=== PATIENT | female | born 1950 | race Caucasian/White ===

== ENCOUNTER 2018-02-14 08:02 | Inpatient (IN) | payer OTHER, MEDICARE ==
[~2018-02-14 08:02] MED LIST: Acetaminophen 325 MG Tab PO SCH; Bisacodyl 5 MG Tab PO PRN; HYDROmorphone 0.5 MG/0.5 ML Syringe IVPUSH PRN; Ketorolac 30 MG/ML SDV ONE; Lactated Ringers 1,000 ML ONE; Lidocaine 1%/Sod Bicarbonate in NS 8.4% 1 ML Syringe IDERM PRN; Magnesium Hydroxide 400 MG/5 ML Susp 30 ML Cup PO PRN; Midazolam 1 MG/ML 2 ML SDV ONE; Naloxone 0.4 MG/ML SDV IVPUSH PRN; Ondansetron 4 MG/2 ML SDV IVPUSH PRN; Pregabalin 25 MG Cap PO SCH; Propofol 200 MG/20 ML SDV ONE; Scopolamine 1.5 MG Transdermal Patch TRDERM ONE; Sennosides 8.6 MG Tab PO PRN; Sodium Chloride 0.9% 10 ML Syringe FLUSH PRN; fentaNYL 100 MCG/2 ML SDV ONE; oxyCODONE ER 10 MG TAB.ER PO ONE
[2018-02-14] MEDS ORDERED: ceFAZolin 1 GM Vial ONE (08:28)
--- NOTE | 2018-02-14 08:30 | PCM.PREANE ---
Preanesthetic Assessment - Anesthesia/Transfusion/Family Hx Anesthesia History: Prior Anesthesia Without Reaction Type of Anesthesia Reaction: Excessive Nausea/Vomiting Family History of Anesthesia Reaction: No Transfusion History: No Prior Transfusion(s) - Review of Systems General: No Symptoms, Other (obesity, allergic rhinitis) Pulmonary: Other (asthma s/p prednisone x3 days finished last wednesday) Cardiovascular: Other (CXR negative, EKG sr with nonspecific intraventricular delay) Other: Reports: Thyroid Problems, Anxiety - Physical Assessment NPO Status Date: 02/13/18 NPO Status Time: 18:30 Pulse: 73 O2 Sat by Pulse Oximetry: 93 Respiratory Rate: 16 Blood Pressure: 136/78 Weight: 109 kg ASA Class: 2 Mental Status: Alert & Oriented x3 Airway Class: Mallampati = 2 Thyro-Mental Finger Breadths: 2 Mouth Opening Finger Breadths: 3 ROM/Head Extension: Full Lungs: Clear to Auscultation, Normal Respiratory Effort Cardiovascular: Regular Rate, Regular Rhythm - Allergies Allergies/Adverse Reactions: Allergies Allergy/AdvReac Type Severity Reaction Status Date / Time metronidazole [From Flagyl] AdvReac Nausea and Verified 02/14/18 07:07 Vomiting morphine AdvReac Nausea and Verified 02/14/18 07:07 Vomiting - Blood Blood Available: No Product(s) Available: None - Anesthesia Plan Pre-Op Medication Ordered: None - Acknowledgements Anesthesia Type Planned: Spinal Pt an Appropriate Candidate for the Planned Anesthesia: Yes Alternatives and Risks of Anesthesia Discussed w Pt/Guardian: Yes Pt/Guardian Understands and Agrees with Anesthesia Plan: Yes PreAnesthesia Questionnaire HEENT History: Reports: Allergic Rhinitis, Hard of Hearing, Sinusitis, Other ( See Below) Other HEENT History: nasal polyp, hearing loss, hypertorphy of nasal turbinates , tinnitis, wears glasses, has hearing aids Cardiovascular History: Reports: None Respiratory History: Reports: Asthma, SOB, Other (See Below) Other Respiratory History: wheezing Gastrointestinal History: Reports: Diverticulosis Genitourinary History: Reports: Other (See Below) Other Genitourinary History: acute cystitis 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 (See Below) Other OB/BYN History: herpes simplex, vulvovaginitis Musculoskeletal History: Reports: Other (See Below) Other Musculoskeletal History: left knee pain Neurological History: Reports: None Psychiatric History: Reports: Anxiety, Other (See Below) Other Psychiatric History: fatigue Endocrine/Metabolic History: Reports: Hypothyroidism, Obesity/BMI 30+ Hematologic History: Reports: None Immunologic History: Reports: None Oncologic (Cancer) History: Reports: None Dermatologic History: Reports: None - Past Surgical History HEENT Surgical History: Reports: Adenoidectomy, Naso-Sinus Surgery, Tonsillectomy Cardiovascular Surgical History: Reports: None Respiratory Surgical History: Reports: None GI Surgical History: Reports: Appendectomy, Cholecystectomy, Colonoscopy Female Surgical History: Reports: Hysterectomy Male Surgical History: Reports: None Endocrine Surgical History: Reports: None Neurological Surgical History: Reports: None Musculoskeletal Surgical History: Reports: Other (See Below) Other Musculoskeletal Surgeries/Procedures:: bilateral bunionectomy Oncologic Surgical History: Reports: None Dermatological Surgical History: Reports: None - SUBSTANCE USE Smoking Status *Q: Former Smoker Recreational Drug Use History: No - HOME MEDS Home Medications: Home Meds ALPRAZolam [Xanax] 0.5 - 1 tab PO Q8H PRN 02/13/18 [History] Aspirin 81 mg PO DAILY 02/13/18 [History] Budesonide/Formoterol Fumarate [Symbicort 160-4.5 Mcg Inhaler] 1 puff INH BID [History] Ca Carbonate/Vitamin D3/Vit K [Calcium + D Soft Chewable Tab] 1 tab PO TID 02/13 [History] Cetirizine [ZyrTEC] 10 mg PO DAILY 02/13/18 [History] Lansoprazole [Prevacid] 15 mg PO DAILY 02/13/18 [History] Levothyroxine 150 mcg PO DAILY 02/13/18 [History] Montelukast [Singulair] 10 mg PO DAILY 02/13/18 [History] Triamcinolone Acetonide [Nasacort] 1 spray INH DAILY 02/13/18 [History] Vitamin B Complex 1 cap PO DAILY 02/13/18 [History] Vitamin E 400 unit PO DAILY 02/13/18 [History] valACYclovir HCl [Valacyclovir] 1,000 mg PO BID PRN 02/13/18 [History] - CURRENT (IN HOUSE) MEDS Current Meds: Current Medications Acetaminophen (Tylenol) 975 mg PO ASDIRECTED SPENCER Stop: 02/14/18 23:00 Aspirin (Ecotrin) 325 mg PO BID SPENCER Bisacodyl (Dulcolax) 5 mg PO DAILY PRN PRN Reason: Constipation Morphine Sulfate 8 mg/Epinephrine HCl 0.3 mg/Cefuroxime Sodium 750 mg/Ketorolac Tromethamine 30 mg/Sodium Chloride 27.9 ml 0 mg .XX ONETIME ONE Stop: 02/14/18 10:01 Cyclobenzaprine HCl (Flexeril) 10 mg PO TID PRN PRN Reason: Spasms Docusate Sodium (Colace) 100 mg PO BID SPENCER Famotidine (Pepcid) 20 mg PO Q12H SPENCER Hydromorphone HCl (Dilaudid) 0.2 mg IVPUSH Q2H PRN PRN Reason: breakthrough pain Lactated Ringer's (Ringers, Lactated) 1,000 mls @ 125 mls/hr IV ASDIRECTED [facility] Stop: 02/14/18 23:00 Cefazolin Sodium/Dextrose 2 gm (/ Premix) 50 mls @ 100 mls/hr IV Q8H [facility] Stop: 02/14/18 23:14 Ketorolac Tromethamine (Toradol) 15 mg IVPUSH Q6H PRN PRN Reason: Pain Lidocaine/Sodium Bicarbonate (Buffered Lidocaine 1% In Ns 8.4%) 0.25 ml IDERM ONETIME PRN PRN Reason: Prior to IV Start Stop: 02/14/18 18:00 Magnesium Hydroxide (Milk Of Magnesia) 30 ml PO BID PRN PRN Reason: Constipation Naloxone HCl (Narcan) 0.1 mg IVPUSH Q5M PRN PRN Reason: Oversedation Ondansetron HCl (Zofran) 4 mg IVPUSH Q6H PRN PRN Reason: Nausea/Vomiting Oxycodone/Acetaminophen (Percocet 325-5 Mg) 1 - 2 tab PO Q4H PRN PRN Reason: Pain Pregabalin (Lyrica) 50 mg PO ASDIRECTED [facility] Stop: 02/14/18 18:00 Senna (Senna) 8.6 mg PO BID PRN PRN Reason: Constipation Sodium Chloride (Saline Flush) 10 ml FLUSH ASDIRECTED PRN PRN Reason: Keep Vein Open Stop: 02/14/18 18:00 Discontinued Medications Cefazolin Sodium (Ancef) Confirm Administered Dose 2 gm .ROUTE .STK-MED ONE Stop: 02/14/18 07:14 Fentanyl (Sublimaze) Confirm Administered Dose 100 mcg .ROUTE .STK-MED ONE Stop: 02/14/18 07:14 Lactated Ringer's (Ringers, Lactated) Confirm Administered Dose 1,000 mls @ as directed .ROUTE .STK-MED ONE Stop: 02/14/18 07:14 Ketorolac Tromethamine (Toradol) Confirm Administered Dose 30 mg .ROUTE .STK- MED ONE Stop: 02/14/18 07:14 Midazolam HCl (Versed 1 Mg/Ml) Confirm Administered Dose 2 mg .ROUTE .STK-MED ONE Stop: 02/14/18 07:14 Oxycodone HCl (Oxycontin) 10 mg PO ONETIME ONE Stop: 02/14/18 06:01 Propofol (Diprivan 20 Ml) Confirm Administered Dose 400 mg .ROUTE .STK-MED ONE Stop: 02/14/18 07:14 Propofol (Diprivan 20 Ml) Confirm Administered Dose 200 mg .ROUTE .STK-MED ONE Stop: 02/14/18 07:19 Scopolamine (Transderm-Scop) 1.5 mg TRDERM ONETIME ONE Stop: 02/14/18 07:01
[2018-02-14] MEDS: Lactated Ringers 1,000 ML IV SCH ×2 (08:35→09:34)
[2018-02-14] MEDS ORDERED: oxyCODONE ER 10 MG TAB.ER PO ONE (08:45)
[2018-02-14] MEDS: ceFAZolin 1 GM Vial ONE ×2 (09:00→11:26)
[2018-02-14] MEDS: Morphine 8 MG, EPINEPHrine 0.3 MG, Cefuroxime 750 MG, Ketorolac 30 MG, Sodium Chloride ... ONE ×15 (09:00→14:05)
[2018-02-14] MEDS: Iodine/Sodium Iodide 2% Tincture 30 ML Bottle ONE ×2 (09:01→11:24)
[2018-02-14] MEDS: Bupivacaine 0.25% 30 ML SDV ONE ×2 (09:01→11:31)
[2018-02-14] MEDS: Vancomycin 1 GM SDV ONE ×2 (09:02→11:34)
[2018-02-14] MEDS ORDERED: Bupivacaine 0.75% 30 ML SDV ONE (10:36)
[2018-02-14] MEDS ORDERED: Phenylephrine 1% 10 MG/ML SDV ONE (10:37)
[2018-02-14] MEDS ORDERED: Ondansetron 4 MG/2 ML SDV ONE (10:55)
[2018-02-14] MEDS ORDERED: Cyclobenzaprine 10 MG Tab PO PRN (11:00)
[2018-02-14] MEDS ORDERED: fentaNYL 100 MCG/2 ML SDV IVPUSH PRN (11:11)
[2018-02-14] MEDS ORDERED: Propofol 200 MG/20 ML SDV ONE (11:38)
[2018-02-14] MEDS ORDERED: HYDROmorphone 0.5 MG/0.5 ML Syringe IVPUSH ONE (11:45)
[2018-02-14] MEDS ORDERED: EPINEPHrine 1 MG/ML SDV ONE (11:50)
[2018-02-14] MEDS ORDERED: Ropivacaine 0.5% 5 MG/ML 30 ML SDV ONE (11:51)
--- NOTE | 2018-02-14 12:16 | PCM.POSTAN ---
POST ANESTHESIA ASSESSMENT - MENTAL STATUS Mental Status: Alert, Oriented - VITAL SIGNS Pulse Rate: 65 SaO2: 96 Resp Rate: 14 Blood Pressure: 107/62 Temperature: 36.3 C - RESPIRATORY Respiratory Status: Respiratory Rate WNL, Airway Patent, O2 Saturation Stable, Supplemental Oxygen - CARDIOVASCULAR CV Status: Pulse Rate WNL, Blood Pressure Stable - GASTROINTESTINAL GI Status: No Symptoms - PAIN Pain Score: 0 - POST OP HYDRATION Hydration Status: Adequate & Stable
--- NOTE | 2018-02-14 13:08 | PCM.SN ---
- Free Text/Narrative Note: Left selective femoral nerve block at the adductor canal for post-procedure pain control under US guidance requested by Dr. Majano. Time Out: 1244 Start: 1244 End: 1251 Chart reviewed. Consent signed. Questions answered. Appropriate monitors applied. Time out performed. Left mid-shaft femur identified with ultrasound, scanning medially of femur, the femoral artery in the adductor canal visualized , and the femoral nerve located laterally to the artery. The skin was prepped lateral to the ultrasound probe with chlorahexadine. The 21ga 4 insulated block needle was inserted under direct ultrasound guidance into the adductor canal. 30mL of 0.5% ropivacaine with 1:200,000 epinephrine was injected circumferentially around the nerve with intermittent negative aspiration noted. Patient tolerated the procedure well. Aseptic technique noted along with sterile gloves, mask, and sterile probe cover. See pictures on progress note and vital signs on nurses notes. Block completed in PACU. Juan Brewer CRNA
[2018-02-14] MEDS: Famotidine 20 MG Tab PO SCH ×2 (14:05→18:15)
--- NOTE | 2018-02-14 14:20 | CR ---
Left knee: AP and lateral views of the left knee were obtained. Comparison: No previous study to correlate with. Knee prosthesis is seen. Components are aligned. Soft tissue air is noted from the surgical procedure. Underlying bony structures are intact. Impression: 1. Satisfactory postop radiographic appearance of recently placed left knee prosthesis. Diagnostic code #2
--- NOTE | 2018-02-14 15:48 | PCM.CONS ---
H&P History of Present Illness - General Date of Service: 02/14/18 Admit Problem/Dx: Admission Diagnosis/Problem Admission Diagnosis/Problem Osteoarthritis of knee Source of Information: Patient, Old Records, Provider, RN Notes Reviewed History Limitations: Reports: No Limitations - History of Present Illness Initial Comments - Free Text/Narative: Libertad is a 67 yo female patient of Dr. Majano who is post-operative day 0 of left TKA. Hospital medicine was consulted for post-operative medical care. At this time she is stable. Pain is controlled. She denies any chest pain, shortness of breath, palpitations. She did have some nausea and vomiting x1 after her PT, but it has since subsided. She carries a history of: Obesity, asthma, hypothyroid, anxiety, hearing loss, diverticulosis. She is a former smoker- 1ppd, quit in 1986. She is a full code. Left Knee Pain Score (Numeric/FACES): 4 Lower Back Pain Score (Numeric/FACES): 8 - Related Data Allergies/Adverse Reactions: Allergies Allergy/AdvReac Type Severity Reaction Status Date / Time metronidazole [From Flagyl] AdvReac Nausea and Verified 02/14/18 07:07 Vomiting morphine AdvReac Nausea and Verified 02/14/18 07:07 Vomiting Home Medications: Home Meds ALPRAZolam [Xanax] 0.5 - 1 tab PO Q8H PRN 02/13/18 [History] Aspirin 81 mg PO DAILY 02/13/18 [History] Budesonide/Formoterol Fumarate [Symbicort 160-4.5 Mcg Inhaler] 1 puff INH BID [History] Ca Carbonate/Vitamin D3/Vit K [Calcium + D Soft Chewable Tab] 1 tab PO TID 02/13 [History] Cetirizine [ZyrTEC] 10 mg PO DAILY 02/13/18 [History] Lansoprazole [Prevacid] 15 mg PO DAILY PRN 02/13/18 [History] Levothyroxine 150 mcg PO DAILY 02/13/18 [History] Montelukast [Singulair] 10 mg PO DAILY PRN 02/13/18 [History] Triamcinolone Acetonide [Nasacort] 1 spray INH DAILY PRN 02/13/18 [History] Vitamin B Complex 1 cap PO DAILY 02/13/18 [History] Vitamin E 400 unit PO DAILY 02/13/18 [History] valACYclovir HCl [Valacyclovir] 1,000 mg PO BID PRN 02/13/18 [History] Past Medical History HEENT History: Reports: Allergic Rhinitis, Hard of Hearing, Sinusitis, Other ( See Below) Other HEENT History: nasal polyp, hearing loss, hypertorphy of nasal turbinates , tinnitis, wears glasses, has hearing aids Cardiovascular History: Reports: None Respiratory History: Reports: Asthma, SOB, Other (See Below) Other Respiratory History: wheezing Gastrointestinal History: Reports: Diverticulosis Genitourinary History: Reports: Other (See Below) Other Genitourinary History: acute cystitis 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 (See Below) Other OB/BYN History: herpes simplex, vulvovaginitis Musculoskeletal History: Reports: Other (See Below) Other Musculoskeletal History: left knee pain Neurological History: Reports: None Psychiatric History: Reports: Anxiety, Other (See Below) Other Psychiatric History: fatigue Endocrine/Metabolic History: Reports: Hypothyroidism, Obesity/BMI 30+ Hematologic History: Reports: None Immunologic History: Reports: None Oncologic (Cancer) History: Reports: None Dermatologic History: Reports: None - Past Surgical History HEENT Surgical History: Reports: Adenoidectomy, Naso-Sinus Surgery, Tonsillectomy Cardiovascular Surgical History: Reports: None Respiratory Surgical History: Reports: None GI Surgical History: Reports: Appendectomy, Cholecystectomy, Colonoscopy Female Surgical History: Reports: Hysterectomy Male Surgical History: Reports: None Endocrine Surgical History: Reports: None Neurological Surgical History: Reports: None Musculoskeletal Surgical History: Reports: Other (See Below) Other Musculoskeletal Surgeries/Procedures:: bilateral bunionectomy Oncologic Surgical History: Reports: None Dermatological Surgical History: Reports: None Social & Family History - Tobacco Use Smoking Status *Q: Former Smoker Used Tobacco, but Quit: Yes Month/Year Tobacco Last Used: 1986 - Caffeine Use Caffeine Use: Reports: None - Recreational Drug Use Recreational Drug Use: No Drug Use in Last 12 Months: No H&P Review of Systems - Review of Systems: Review Of Systems: See Below General: Reports: No Symptoms. Denies: Fever, Chills HEENT: Reports: No Symptoms. Denies: Headaches Pulmonary: Reports: No Symptoms. Denies: Shortness of Breath, Cough Cardiovascular: Reports: No Symptoms. Denies: Chest Pain, Palpitations Gastrointestinal: Reports: No Symptoms. Denies: Abdominal Pain, Diarrhea, Nausea, Vomiting Genitourinary: Reports: No Symptoms. Denies: Dysuria, Frequency, Burning Musculoskeletal: Reports: Joint Pain (3/10, s/p L TKA) Skin: Reports: No Symptoms Psychiatric: Reports: No Symptoms Neurological: Reports: No Symptoms Hematologic/Lymphatic: Reports: No Symptoms Immunologic: Reports: No Symptoms Exam - Exam Exam: See Below - Vital Signs Vital Signs: Last Vital Signs Temp 96.3 F 02/14/18 13:28 Pulse 52 L 02/14/18 15:02 Resp 16 02/14/18 13:28 BP 112/62 02/14/18 15:02 Pulse Ox 96 02/14/18 15:02 Weight: 239 lb - Exam Quality Assessment: Supplemental Oxygen (1L nasal cannula), Urinary Catheter, DVT Prophylaxis General: Alert, Oriented, 4 HEENT: Conjunctiva Clear, EACs Clear, EOMI, Hearing Intact, Mucosa Moist & [place] , Nares Patent, Normal Nasal Septum, Posterior Pharynx Clear Neck: Supple, Trachea Midline, 2 Lungs: Clear to Auscultation, Normal Respiratory Effort Cardiovascular: Regular Rate, Regular Rhythm GI/Abdominal Exam: Normal Bowel Sounds, Soft, Non-Tender, No Organomegaly, No Distention, No Abnormal Bruit, No Mass, Pelvis Stable (Female) Exam: Deferred Rectal (Female) Exam: Deferred Back Exam: Normal Inspection, Full Range of Motion, NT Extremities: Non-Tender (3/10 pain, s/p L TKA), No Pedal Edema, Normal Capillary Refill, Limited Range of Motion Peripheral Pulses: 1+: Posterior Tibial (L), Posterior Tibial (R), Dorsalis Pedis (L), Dorsalis Pedis (R) Skin: Warm, Dry, Intact, Other (Dressing is dry and intact) Neurological: Cranial Nerves Intact (Grossly) Neuro Extensive - Mental Status: Alert, Oriented x3, Normal Mood/Affect, Normal Cognition Psychiatric: Alert, Normal Affect, Normal Mood Consult PN Assessment/Plan POD#: 0 Procedures: Procedures DXA BONE DENSITY AXIAL (11/15/15) MR-STAPH DNA AMP PROBE (02/03/18) (1) Status post total left knee replacement SNOMED Code(s): 1181144042396 Code(s): Z96.652 - PRESENCE OF LEFT ARTIFICIAL KNEE JOINT Priority: High Current Visit: Yes (2) Obesity SNOMED Code(s): 159842362, 514873568 Code(s): E66.9 - OBESITY, UNSPECIFIED Priority: Low Current Visit: Yes Qualifiers: Obesity classification: unspecified obesity classification Serious obesity comorbidity presence: unspecified whether serious comorbidity present (3) Asthma SNOMED Code(s): 946941978 Code(s): J45.909 - UNSPECIFIED ASTHMA, UNCOMPLICATED Priority: Medium Current Visit: No Qualifiers: Asthma severity: unspecified severity Asthma persistence: unspecified Asthma complication type: unspecified Qualified Code(s): J45.909 - Unspecified asthma, uncomplicated (4) Hypothyroid SNOMED Code(s): 00775863 Code(s): E03.9 - HYPOTHYROIDISM, UNSPECIFIED Priority: Low Current Visit : No Qualifiers: Hypothyroidism type: unspecified Qualified Code(s): E03.9 - Hypothyroidism , unspecified (5) Anxiety SNOMED Code(s): 70697290 Code(s): F41.9 - ANXIETY DISORDER, UNSPECIFIED Priority: Low Current Visit: No (6) Hearing loss SNOMED Code(s): 04996225 Code(s): H91.90 - UNSPECIFIED HEARING LOSS, UNSPECIFIED EAR Priority: Low Current Visit: Yes Qualifiers: Hearing loss type: unspecified Laterality: unspecified laterality Qualified Code(s): H91.90 - Unspecified hearing loss, unspecified ear (7) Diverticulosis SNOMED Code(s): 74489667 Code(s): K57.90 - DVRTCLOS OF INTEST, PART UNSP, W/O PERF OR ABSCESS W/O BLEED Priority: Low Current Visit: No Qualifiers: Diverticulosis site: unspecified location Problem List Initiated/Reviewed/Updated: Yes Plan: I/P: Acute: S/P left total knee arthroplasty - post-operative day 0 -DVT prophylaxis and pain management per primary care team -PT/OT -IS/RT -Monitor oxygen saturation -Titrate oxygen as needed -Vital signs stable -Monitor labs Chronic: Obesity Asthma Hypothyroid Anxiety Hearing loss Diverticulosis Plan: CM for discharge planning GI prophylaxis: Pepcid DVT/PE prophylaxis: TRACY hose, SCD, ASA Home medications as indicated Other orders as listed above Routine AM labs She is a full code. Her PCP is Dereck Majano. Thank you for allowing us to participate in the care of this patient!!
[2018-02-14] MEDS ORDERED: ALPRAZolam 0.5 MG Tab PO PRN (16:14)
[2018-02-14] MEDS ORDERED: Pantoprazole 40 MG Tab.CR PO PRN (16:14)
[2018-02-14] MEDS ORDERED: Montelukast 10 MG Tab PO PRN (16:14)
[2018-02-14] MEDS ORDERED: valACYclovir 1,000 MG Tab PO PRN (16:14)
[2018-02-14] MEDS: ceFAZolin 2 GM in Premix Bag 1 BAG IV SCH (17:01)
[2018-02-14] MEDS: Ketorolac 15 MG/ML SDV IVPUSH PRN (17:47)
[2018-02-14] MEDS: Docusate Sodium 100 MG Cap PO SCH (21:02)
[2018-02-14] MEDS: Acetaminophen/oxyCODONE 325-5 MG Tab PO PRN (21:02)
[2018-02-14] MEDS: Formoterol/Mometasone 200-5 MCG 8.8 GM Inhaler IH SCH (21:45)
[2018-02-15] MEDS: ceFAZolin 2 GM in Premix Bag 1 BAG IV SCH ×2 (01:06→09:32)
[2018-02-15] MEDS: Ketorolac 15 MG/ML SDV IVPUSH PRN (01:07)
[2018-02-15] MEDS: Acetaminophen/oxyCODONE 325-5 MG Tab PO PRN ×2 (04:13→09:41)
[2018-02-15] MEDS ORDERED: Levothyroxine 150 MCG Tab PO SCH (06:00)
--- NOTE | 2018-02-15 06:30 | PCM.CONSN ---
- General Info Date of Service: 02/15/18 Admission Dx/Problem (Free Text): Admission Diagnosis/Problem Admission Diagnosis/Problem Osteoarthritis of knee Subjective Update: In to see Libertad. She is lying in bed. She reports some mild nausea while up to use the restroom but this has resolved. No complaints. Nursing has no concerns. Oxygen has been weaned. She did very well with PT/OT Functional Status: Reports: Pain Controlled, Tolerating Diet, Ambulating, Urinating, Incentive Spirometry. Denies: New Symptoms - Review of Systems General: Reports: No Symptoms HEENT: Reports: No Symptoms Pulmonary: Reports: No Symptoms Cardiovascular: Reports: No Symptoms Gastrointestinal: Reports: Nausea (earlier in day but has resolved ). Denies: Abdominal Pain, Constipation, Diarrhea, Vomiting Genitourinary: Reports: No Symptoms Musculoskeletal: Reports: Joint Pain Skin: Reports: No Symptoms Neurological: Reports: No Symptoms Psychiatric: Reports: No Symptoms - Patient Data Vitals - Most Recent: Last Vital Signs Temp 97.9 F 02/14/18 16:00 Pulse 64 02/14/18 19:58 Resp 16 02/14/18 13:28 BP 138/79 02/14/18 19:58 Pulse Ox 95 02/14/18 19:58 Weight - Most Recent: 239 lb I&O - Last 24 Hours: Intake & Output 02/14/18 02/14/18 02/15/18 14:59 22:59 06:59 Intake Total 400 120 Output Total 370 490 550 Balance 30 -370 -550 Med Orders - Current: Current Medications Alprazolam (Xanax) 0.5 - 1 mg PO Q8H PRN PRN Reason: Anxiety Aspirin (Ecotrin) 325 mg PO BID [facility] Bisacodyl (Dulcolax) 5 mg PO DAILY PRN PRN Reason: Constipation Cyclobenzaprine HCl (Flexeril) 10 mg PO TID PRN PRN Reason: Spasms Docusate Sodium (Colace) 100 mg PO BID [facility] Last Admin: 02/14/18 21:02 Dose: 100 mg Famotidine (Pepcid) 20 mg PO Q12H [facility] Last Admin: 02/14/18 18:15 Dose: Not Given Flunisolide (Nasalide Nasal [place]) 0 ml NASBOTH DAILY PRN PRN Reason: Allergies Hydromorphone HCl (Dilaudid) 0.2 mg IVPUSH Q2H PRN PRN Reason: breakthrough pain Cefazolin Sodium/Dextrose 2 gm (/ Premix) 50 mls @ 100 mls/hr IV Q8H [facility] Stop: 02/15/18 09:29 Last Admin: 02/15/18 01:06 Dose: 100 mls/hr Ketorolac Tromethamine (Toradol) 15 mg IVPUSH Q6H PRN PRN Reason: Pain Last Admin: 02/15/18 01:07 Dose: 15 mg Levothyroxine Sodium (Levothyroxine) 150 mcg PO ACBRK [facility] Loratadine (Claritin) 10 mg PO DAILY [facility] Magnesium Hydroxide (Milk Of Magnesia) 30 ml PO BID PRN PRN Reason: Constipation Mometasone Furoate/Formoterol Fumar (Dulera 200-5 Mcg) 1 puff IH BID [facility] Last Admin: 02/14/18 21:45 Dose: Not Given Montelukast Sodium (Singulair) 10 mg PO DAILY PRN PRN Reason: Allergies Naloxone HCl (Narcan) 0.1 mg IVPUSH Q5M PRN PRN Reason: Oversedation Non-Formulary Medication (Ca Carbonate/Vitamin D3/Vit K [Calcium + D Soft Chewable Tab]) 1 tab PO TID [facility] Ondansetron HCl (Zofran) 4 mg IVPUSH Q6H PRN PRN Reason: Nausea/Vomiting Oxycodone/Acetaminophen (Percocet 325-5 Mg) 1 - 2 tab PO Q4H PRN PRN Reason: Pain Last Admin: 02/15/18 04:13 Dose: 2 tab Pantoprazole Sodium (Protonix) 40 mg PO DAILY@0700 PRN PRN Reason: Heartburn Senna (Senna) 8.6 mg PO BID PRN PRN Reason: Constipation Valacyclovir HCl (Valtrex) 1,000 mg PO BID PRN PRN Reason: cold sores Vitamin B Complex/Vitamin C (Super B With Vitamin C) 1 cap PO DAILY [facility] Discontinued Medications Acetaminophen (Tylenol) 975 mg PO ASDIRECTED [facility] Stop: 02/14/18 23:00 Last Admin: 02/14/18 08:46 Dose: 975 mg Bupivacaine HCl (Marcaine 0.25%) Confirm Administered Dose 30 ml .ROUTE .STK- MED ONE Stop: 02/14/18 08:29 Last Admin: 02/14/18 11:31 Dose: 30 ml Bupivacaine HCl (Sensorcaine-Mpf 0.75%) Confirm Administered Dose 30 ml .ROUTE .STK-MED ONE Stop: 02/14/18 10:37 Cefazolin Sodium (Ancef) Confirm Administered Dose 2 gm .ROUTE .STK-MED ONE Stop: 02/14/18 07:14 Last Admin: 02/14/18 11:26 Dose: 2 gm Cefazolin Sodium (Ancef) Confirm Administered Dose 2 gm .ROUTE .STK-MED ONE Stop: 02/14/18 08:29 Morphine Sulfate 8 mg/Epinephrine HCl 0.3 mg/Cefuroxime Sodium 750 mg/Ketorolac Tromethamine 30 mg/Sodium Chloride 27.9 ml 0 mg .XX ONETIME ONE Stop: 02/14/18 10:01 Last Admin: 02/14/18 14:05 Dose: Not Given Epinephrine HCl (Adrenalin) Confirm Administered Dose 1 mg .ROUTE .STK-MED ONE Stop: 02/14/18 11:51 Fentanyl (Sublimaze) Confirm Administered Dose 100 mcg .ROUTE .STK-MED ONE Stop: 02/14/18 07:14 Fentanyl (Sublimaze) 50 mcg IVPUSH Q5M PRN PRN Reason: pain Stop: 02/14/18 14:00 Hydromorphone HCl (Dilaudid) 0.5 mg IVPUSH ONETIME ONE Stop: 02/14/18 11:46 Last Admin: 02/14/18 14:05 Dose: Not Given Lactated Ringer's (Ringers, Lactated) 1,000 mls @ 125 mls/hr IV ASDIRECTED [facility] Stop: 02/14/18 23:00 Last Admin: 02/14/18 09:34 Dose: 125 mls/hr Lactated Ringer's (Ringers, Lactated) Confirm Administered Dose 1,000 mls @ as directed .ROUTE .STK-MED ONE Stop: 02/14/18 07:14 Iodine (Iodine 2% Mild Tincture) Confirm Administered Dose 30 ml .ROUTE .STK- MED ONE Stop: 02/14/18 08:29 Last Admin: 02/14/18 11:24 Dose: 18 ml Ketorolac Tromethamine (Toradol) Confirm Administered Dose 30 mg .ROUTE .STK- MED ONE Stop: 02/14/18 07:14 Lidocaine/Sodium Bicarbonate (Buffered Lidocaine 1% In Ns 8.4%) 0.25 ml IDERM ONETIME PRN PRN Reason: Prior to IV Start Stop: 02/14/18 18:00 Last Admin: 02/14/18 08:35 Dose: 0.25 ml Midazolam HCl (Versed 1 Mg/Ml) Confirm Administered Dose 2 mg .ROUTE .STK-MED ONE Stop: 02/14/18 07:14 Ondansetron HCl (Zofran) Confirm Administered Dose 4 mg .ROUTE .STK-MED ONE Stop: 02/14/18 10:56 Oxycodone HCl (Oxycontin) 10 mg PO ONETIME ONE Stop: 02/14/18 06:01 Last Admin: 02/14/18 08:47 Dose: 10 mg Oxycodone HCl (Oxycontin) 10 mg PO ONETIME ONE Stop: 02/14/18 08:46 Last Admin: 02/14/18 08:49 Dose: Not Given Phenylephrine HCl (Manoj-Synephrine) Confirm Administered Dose 10 mg .ROUTE .STK- MED ONE Stop: 02/14/18 10:38 Pregabalin (Lyrica) 50 mg PO ASDIRECTED [facility] Stop: 02/14/18 18:00 Last Admin: 02/14/18 08:46 Dose: 50 mg Propofol (Diprivan 20 Ml) Confirm Administered Dose 400 mg .ROUTE .STK-MED ONE Stop: 02/14/18 07:14 Propofol (Diprivan 20 Ml) Confirm Administered Dose 200 mg .ROUTE .STK-MED ONE Stop: 02/14/18 07:19 Propofol (Diprivan 20 Ml) Confirm Administered Dose 200 mg .ROUTE .STK-MED ONE Stop: 02/14/18 11:39 Ropivacaine (Naropin 0.5%) Confirm Administered Dose 30 ml .ROUTE .STK-MED ONE Stop: 02/14/18 11:52 Scopolamine (Transderm-Scop) 1.5 mg TRDERM ONETIME ONE Stop: 02/14/18 07:01 Last Admin: 02/14/18 08:15 Dose: 1.5 mg Sodium Chloride (Saline Flush) 10 ml FLUSH ASDIRECTED PRN PRN Reason: Keep Vein Open Stop: 02/14/18 18:00 Tranexamic Acid (Cyklokapron) Confirm Administered Dose 1,000 mg .ROUTE .STK- MED ONE Stop: 02/14/18 08:29 Last Admin: 02/14/18 11:38 Dose: 1,000 mg Vancomycin HCl (Vancomycin) Confirm Administered Dose 1 gm .ROUTE .STK-MED ONE Stop: 02/14/18 08:29 Last Admin: 02/14/18 11:34 Dose: 1 gm - Exam Quality Assessment: DVT Prophylaxis General: Alert, Oriented, Cooperative, No Acute Distress HEENT: Pupils Equal, Pupils Reactive, EOMI, Mucous Membr. Moist/[place] Neck: Supple, Trachea Midline, No JVD Lungs: Clear to Auscultation, Normal Respiratory Effort Cardiovascular: Regular Rate, Regular Rhythm GI/Abdominal Exam: Normal Bowel Sounds, Soft, Non-Tender, No Organomegaly, No Distention, No Abnormal Bruit, No Mass, Pelvis Stable (Female) Exam: Deferred Back Exam: Normal Inspection, Full Range of Motion Extremities: No Pedal Edema, Normal Capillary Refill, Leg Pain, Limited Range of Motion, Other (bandage in place on ) Peripheral Pulses: 2+: Radial (L), Radial (R), Posterior Tibial (L), Posterior Tibial (R), Dorsalis Pedis (L), Dorsalis Pedis (R) Skin: Warm, Dry, Intact Wound/Incisions: Dressing Dry and Intact, No Drainage Neurological: No New Focal Deficit Psy/Mental Status: Alert, Normal Affect, Normal Mood Consult PN Assessment/Plan POD#: 1 Procedures: Procedures DXA BONE DENSITY AXIAL (11/15/15) MR-STAPH DNA AMP PROBE (02/03/18) (1) Status post total left knee replacement SNOMED Code(s): 4654145152124 Code(s): Z96.652 - PRESENCE OF LEFT ARTIFICIAL KNEE JOINT Priority: High Current Visit: Yes (2) Osteoarthritis SNOMED Code(s): 440399746 Code(s): M19.90 - UNSPECIFIED OSTEOARTHRITIS, UNSPECIFIED SITE Priority: High Current Visit: Yes Qualifiers: Osteoarthritis location: knee Osteoarthritis type: primary Laterality: left Qualified Code(s): M17.12 - Unilateral primary osteoarthritis, left knee (3) Hearing loss SNOMED Code(s): 41995571 Code(s): H91.90 - UNSPECIFIED HEARING LOSS, UNSPECIFIED EAR Priority: Low Current Visit: Yes Qualifiers: Hearing loss type: unspecified Laterality: unspecified laterality Qualified Code(s): H91.90 - Unspecified hearing loss, unspecified ear (4) Obesity SNOMED Code(s): 657459216, 954887337 Code(s): E66.9 - OBESITY, UNSPECIFIED Priority: Low Current Visit: Yes Qualifiers: Obesity classification: unspecified obesity classification Serious obesity comorbidity presence: unspecified whether serious comorbidity present (5) Anxiety SNOMED Code(s): 90727785 Code(s): F41.9 - ANXIETY DISORDER, UNSPECIFIED Priority: Low Current Visit: No (6) Asthma SNOMED Code(s): 910052146 Code(s): J45.909 - UNSPECIFIED ASTHMA, UNCOMPLICATED Priority: Medium Current Visit: No Qualifiers: Asthma severity: unspecified severity Asthma persistence: unspecified Asthma complication type: unspecified Qualified Code(s): J45.909 - Unspecified asthma, uncomplicated (7) Diverticulosis SNOMED Code(s): 85912328 Code(s): K57.90 - DVRTCLOS OF INTEST, PART UNSP, W/O PERF OR ABSCESS W/O BLEED Priority: Low Current Visit: No Qualifiers: Diverticulosis site: unspecified location (8) Hypothyroid SNOMED Code(s): 67487724 Code(s): E03.9 - HYPOTHYROIDISM, UNSPECIFIED Priority: Low Current Visit : No Qualifiers: Hypothyroidism type: unspecified Qualified Code(s): E03.9 - Hypothyroidism , unspecified Problem List Initiated/Reviewed/Updated: Yes Plan: I/P: Acute: S/P left total knee arthroplasty - post-operative day 1 -DVT prophylaxis and pain management per primary care team -PT/OT -IS/RT -Monitor oxygen saturation -Titrate oxygen as needed -Vital signs stable -Monitor labs - Hgb 13.2 Osteoarthritis of left knee -Management per primary care team Chronic: Obesity Asthma Hypothyroid Anxiety Hearing loss Diverticulosis Plan: CM for discharge planning GI prophylaxis: Pepcid DVT/PE prophylaxis: TRACY hose, SCD, ASA Home medications as indicated Other orders as listed above Routine AM labs She is a full code. Her PCP is Norma Kessler at [facility]. Thank you for allowing us to participate in the care of this patient!! Libertad has done very well. She has urinated. She is off oxygen. PT/OT have seen her and she has done well with them. From a hospitalist standpoint she is clear for discharge pending primary care team agreement.
[2018-02-15] MEDS: Famotidine 20 MG Tab PO SCH (06:48)
--- NOTE | 2018-02-15 07:59 | PCM.SURGPN ---
- General Info Date of Service: 02/15/18 POD#: 1 Functional Status: Reports: Pain Controlled, Tolerating Diet, Ambulating, Urinating, Incentive Spirometry - Review of Systems Musculoskeletal: Reports: Other (The pt states her pain is controlled. She has progressed well with ambulation.) - Patient Data Vitals - Most Recent: Last Vital Signs Temp 97.9 F 02/14/18 16:00 Pulse 64 02/14/18 19:58 Resp 16 02/14/18 13:28 BP 138/79 02/14/18 19:58 Pulse Ox 95 02/14/18 19:58 Weight - Most Recent: 239 lb I&O - Last 24 Hours: Intake & Output 02/14/18 02/15/18 02/15/18 22:59 06:59 14:59 Intake Total 120 Output Total 490 550 Balance -370 -550 Lab Results Last 24 Hrs: Laboratory Results - last 24 hr 02/15/18 Range/Units 05:54 WBC 7.04 (3.98-10.04) K/mm3 RBC 4.67 (3.98-5.22) M/mm3 Hgb 13.2 (11.2-15.7) gm/L Hct 42.2 (34.1-44.9) % MCV 90.4 (79.4-94.8) fl MCH 28.3 (25.6-32.2) pg MCHC 31.3 L (32.2-35.5) g/dl RDW Std Deviation 46.3 (36.4-46.3) fL Plt Count 216 (182-369) K/mm3 MPV 10.2 (9.4-12.3) fl Med Orders - Current: Current Medications Alprazolam (Xanax) 0.5 - 1 mg PO Q8H PRN PRN Reason: Anxiety Aspirin (Ecotrin) 325 mg PO BID [facility] Bisacodyl (Dulcolax) 5 mg PO DAILY PRN PRN Reason: Constipation Cyclobenzaprine HCl (Flexeril) 10 mg PO TID PRN PRN Reason: Spasms Last Admin: 02/15/18 06:48 Dose: 10 mg Docusate Sodium (Colace) 100 mg PO BID [facility] Last Admin: 02/14/18 21:02 Dose: 100 mg Flunisolide (Nasalide Nasal [place]) 0 ml NASBOTH DAILY PRN PRN Reason: Allergies Hydromorphone HCl (Dilaudid) 0.2 mg IVPUSH Q2H PRN PRN Reason: breakthrough pain Cefazolin Sodium/Dextrose 2 gm (/ Premix) 50 mls @ 100 mls/hr IV Q8H [facility] Stop: 02/15/18 09:29 Last Admin: 02/15/18 01:06 Dose: 100 mls/hr Ketorolac Tromethamine (Toradol) 15 mg IVPUSH Q6H PRN PRN Reason: Pain Last Admin: 02/15/18 01:07 Dose: 15 mg Levothyroxine Sodium (Levothyroxine) 150 mcg PO ACBRK [facility] Last Admin: 02/15/18 06:48 Dose: 150 mcg Loratadine (Claritin) 10 mg PO DAILY [facility] Magnesium Hydroxide (Milk Of Magnesia) 30 ml PO BID PRN PRN Reason: Constipation Mometasone Furoate/Formoterol Fumar (Dulera 200-5 Mcg) 1 puff IH BID [facility] Last Admin: 02/14/18 21:45 Dose: Not Given Montelukast Sodium (Singulair) 10 mg PO DAILY PRN PRN Reason: Allergies Naloxone HCl (Narcan) 0.1 mg IVPUSH Q5M PRN PRN Reason: Oversedation Non-Formulary Medication (Ca Carbonate/Vitamin D3/Vit K [Calcium + D Soft Chewable Tab]) 1 tab PO TID [facility] Ondansetron HCl (Zofran) 4 mg IVPUSH Q6H PRN PRN Reason: Nausea/Vomiting Oxycodone/Acetaminophen (Percocet 325-5 Mg) 1 - 2 tab PO Q4H PRN PRN Reason: Pain Last Admin: 02/15/18 04:13 Dose: 2 tab Pantoprazole Sodium (Protonix) 40 mg PO DAILY@0700 PRN PRN Reason: Heartburn Senna (Senna) 8.6 mg PO BID PRN PRN Reason: Constipation Valacyclovir HCl (Valtrex) 1,000 mg PO BID PRN PRN Reason: cold sores Vitamin B Complex/Vitamin C (Super B With Vitamin C) 1 cap PO DAILY [facility] Discontinued Medications Acetaminophen (Tylenol) 975 mg PO ASDIRECTED [facility] Stop: 02/14/18 23:00 Last Admin: 02/14/18 08:46 Dose: 975 mg Bupivacaine HCl (Marcaine 0.25%) Confirm Administered Dose 30 ml .ROUTE .STK- MED ONE Stop: 02/14/18 08:29 Last Admin: 02/14/18 11:31 Dose: 30 ml Bupivacaine HCl (Sensorcaine-Mpf 0.75%) Confirm Administered Dose 30 ml .ROUTE .STK-MED ONE Stop: 02/14/18 10:37 Cefazolin Sodium (Ancef) Confirm Administered Dose 2 gm .ROUTE .STK-MED ONE Stop: 02/14/18 07:14 Last Admin: 02/14/18 11:26 Dose: 2 gm Cefazolin Sodium (Ancef) Confirm Administered Dose 2 gm .ROUTE .STK-MED ONE Stop: 02/14/18 08:29 Morphine Sulfate 8 mg/Epinephrine HCl 0.3 mg/Cefuroxime Sodium 750 mg/Ketorolac Tromethamine 30 mg/Sodium Chloride 27.9 ml 0 mg .XX ONETIME ONE Stop: 02/14/18 10:01 Last Admin: 02/14/18 14:05 Dose: Not Given Epinephrine HCl (Adrenalin) Confirm Administered Dose 1 mg .ROUTE .STK-MED ONE Stop: 02/14/18 11:51 Famotidine (Pepcid) 20 mg PO Q12H [facility] Last Admin: 02/15/18 06:48 Dose: 20 mg Fentanyl (Sublimaze) Confirm Administered Dose 100 mcg .ROUTE .STK-MED ONE Stop: 02/14/18 07:14 Fentanyl (Sublimaze) 50 mcg IVPUSH Q5M PRN PRN Reason: pain Stop: 02/14/18 14:00 Hydromorphone HCl (Dilaudid) 0.5 mg IVPUSH ONETIME ONE Stop: 02/14/18 11:46 Last Admin: 02/14/18 14:05 Dose: Not Given Lactated Ringer's (Ringers, Lactated) 1,000 mls @ 125 mls/hr IV ASDIRECTED [facility] Stop: 02/14/18 23:00 Last Admin: 02/14/18 09:34 Dose: 125 mls/hr Lactated Ringer's (Ringers, Lactated) Confirm Administered Dose 1,000 mls @ as directed .ROUTE .STK-MED ONE Stop: 02/14/18 07:14 Iodine (Iodine 2% Mild Tincture) Confirm Administered Dose 30 ml .ROUTE .STK- MED ONE Stop: 02/14/18 08:29 Last Admin: 02/14/18 11:24 Dose: 18 ml Ketorolac Tromethamine (Toradol) Confirm Administered Dose 30 mg .ROUTE .STK- MED ONE Stop: 02/14/18 07:14 Lidocaine/Sodium Bicarbonate (Buffered Lidocaine 1% In Ns 8.4%) 0.25 ml IDERM ONETIME PRN PRN Reason: Prior to IV Start Stop: 02/14/18 18:00 Last Admin: 02/14/18 08:35 Dose: 0.25 ml Midazolam HCl (Versed 1 Mg/Ml) Confirm Administered Dose 2 mg .ROUTE .STK-MED ONE Stop: 02/14/18 07:14 Ondansetron HCl (Zofran) Confirm Administered Dose 4 mg .ROUTE .STK-MED ONE Stop: 02/14/18 10:56 Oxycodone HCl (Oxycontin) 10 mg PO ONETIME ONE Stop: 02/14/18 06:01 Last Admin: 02/14/18 08:47 Dose: 10 mg Oxycodone HCl (Oxycontin) 10 mg PO ONETIME ONE Stop: 02/14/18 08:46 Last Admin: 02/14/18 08:49 Dose: Not Given Phenylephrine HCl (Manoj-Synephrine) Confirm Administered Dose 10 mg .ROUTE .STK- MED ONE Stop: 02/14/18 10:38 Pregabalin (Lyrica) 50 mg PO ASDIRECTED [facility] Stop: 02/14/18 18:00 Last Admin: 02/14/18 08:46 Dose: 50 mg Propofol (Diprivan 20 Ml) Confirm Administered Dose 400 mg .ROUTE .STK-MED ONE Stop: 02/14/18 07:14 Propofol (Diprivan 20 Ml) Confirm Administered Dose 200 mg .ROUTE .STK-MED ONE Stop: 02/14/18 07:19 Propofol (Diprivan 20 Ml) Confirm Administered Dose 200 mg .ROUTE .STK-MED ONE Stop: 02/14/18 11:39 Ropivacaine (Naropin 0.5%) Confirm Administered Dose 30 ml .ROUTE .STK-MED ONE Stop: 02/14/18 11:52 Scopolamine (Transderm-Scop) 1.5 mg TRDERM ONETIME ONE Stop: 02/14/18 07:01 Last Admin: 02/14/18 08:15 Dose: 1.5 mg Sodium Chloride (Saline Flush) 10 ml FLUSH ASDIRECTED PRN PRN Reason: Keep Vein Open Stop: 02/14/18 18:00 Tranexamic Acid (Cyklokapron) Confirm Administered Dose 1,000 mg .ROUTE .STK- MED ONE Stop: 02/14/18 08:29 Last Admin: 02/14/18 11:38 Dose: 1,000 mg Vancomycin HCl (Vancomycin) Confirm Administered Dose 1 gm .ROUTE .STK-MED ONE Stop: 02/14/18 08:29 Last Admin: 02/14/18 11:34 Dose: 1 gm - Exam Wound/Incisions: Dressing Dry and Intact General: Alert, Cooperative, No Acute Distress Lungs: Normal Respiratory Effort Extremities: Other (NVS intact for BLE. Josefina's negative.) - Problem List Review Problem List Initiated/Reviewed/Updated: Yes - My Orders Last 24 Hours: Active Orders 24 hr Category Date Time Status Pulse Oximetry [RC] ASDIRECTED Care 02/14/18 11:10 Active Ready for Discharge [RC] PER UNIT ROUTINE Care 02/15/18 07:57 Ordered Regular Diet [DIET] Diet 02/14/18 Lunch Active COMPREHENSIVE METABOLIC PN,CMP [CHEM] AM Lab 02/15/18 05:54 Received ALPRAZolam [Xanax] Med 02/14/18 16:14 Active 0.5 - 1 mg PO Q8H PRN Aspirin [Ecotrin] Med 02/15/18 09:00 Active 325 mg PO BID Ca Carbonate/Vitamin D3/Vit K [Calcium + D Soft Med 02/14/18 21:00 Pending Chewable Tab] 1 tab PO TID Cyclobenzaprine [Flexeril] Med 02/14/18 11:00 Active 10 mg PO TID PRN Docusate Sodium [Colace] Med 02/14/18 21:00 Active 100 mg PO BID Flunisolide [Nasalide Nasal [place]] Med 02/14/18 16:14 Active 0 ml NASBOTH DAILY PRN Ketorolac [Toradol] Med 02/14/18 11:00 Active 15 mg IVPUSH Q6H PRN Levothyroxine Med 02/15/18 06:00 Active 150 mcg PO ACBRK Loratadine [Claritin] Med 02/15/18 09:00 Active 10 mg PO DAILY Mometasone/Formoterol [Dulera 200-5 MCG] Med 02/14/18 21:00 Active 1 puff IH BID Montelukast [Singulair] Med 02/14/18 16:14 Active 10 mg PO DAILY PRN Pantoprazole [ProTONIX] Med 02/14/18 16:14 Active 40 mg PO DAILY@0700 PRN Vitamin B Complex with C [Super B With Vitamin C] Med 02/15/18 09:00 Active 1 cap PO DAILY ceFAZolin [Ancef] 2 gm Med 02/14/18 17:00 Active Premix Bag 1 bag IV Q8H valACYclovir [Valtrex] Med 02/14/18 16:14 Active 1,000 mg PO BID PRN Medication Orders Alprazolam (Xanax) 0.5 - 1 mg PO Q8H PRN PRN Reason: Anxiety Aspirin (Ecotrin) 325 mg PO BID [facility] Bisacodyl (Dulcolax) 5 mg PO DAILY PRN PRN Reason: Constipation Cyclobenzaprine HCl (Flexeril) 10 mg PO TID PRN PRN Reason: Spasms Last Admin: 02/15/18 06:48 Dose: 10 mg Docusate Sodium (Colace) 100 mg PO BID [facility] Last Admin: 02/14/18 21:02 Dose: 100 mg Flunisolide (Nasalide Nasal [place]) 0 ml NASBOTH DAILY PRN PRN Reason: Allergies Hydromorphone HCl (Dilaudid) 0.2 mg IVPUSH Q2H PRN PRN Reason: breakthrough pain Cefazolin Sodium/Dextrose 2 gm (/ Premix) 50 mls @ 100 mls/hr IV Q8H [facility] Stop: 02/15/18 09:29 Last Admin: 02/15/18 01:06 Dose: 100 mls/hr Infusion: 02/14/18 17:31 Dose: 100 mls/hr Admin: 02/14/18 17:01 Dose: 100 mls/hr Ketorolac Tromethamine (Toradol) 15 mg IVPUSH Q6H PRN PRN Reason: Pain Last Admin: 02/15/18 01:07 Dose: 15 mg Admin: 02/14/18 17:47 Dose: 15 mg Levothyroxine Sodium (Levothyroxine) 150 mcg PO ACBRK [facility] Last Admin: 02/15/18 06:48 Dose: 150 mcg Loratadine (Claritin) 10 mg PO DAILY [facility] Magnesium Hydroxide (Milk Of Magnesia) 30 ml PO BID PRN PRN Reason: Constipation Mometasone Furoate/Formoterol Fumar (Dulera 200-5 Mcg) 1 puff IH BID [facility] Last Admin: 02/14/18 21:45 Dose: Not Given Montelukast Sodium (Singulair) 10 mg PO DAILY PRN PRN Reason: Allergies Naloxone HCl (Narcan) 0.1 mg IVPUSH Q5M PRN PRN Reason: Oversedation Non-Formulary Medication (Ca Carbonate/Vitamin D3/Vit K [Calcium + D Soft Chewable Tab]) 1 tab PO TID [facility] Ondansetron HCl (Zofran) 4 mg IVPUSH Q6H PRN PRN Reason: Nausea/Vomiting Oxycodone/Acetaminophen (Percocet 325-5 Mg) 1 - 2 tab PO Q4H PRN PRN Reason: Pain Last Admin: 02/15/18 04:13 Dose: 2 tab Admin: 02/14/18 21:02 Dose: 2 tab Pantoprazole Sodium (Protonix) 40 mg PO DAILY@0700 PRN PRN Reason: Heartburn Senna (Senna) 8.6 mg PO BID PRN PRN Reason: Constipation Valacyclovir HCl (Valtrex) 1,000 mg PO BID PRN PRN Reason: cold sores Vitamin B Complex/Vitamin C (Super B With Vitamin C) 1 cap PO DAILY [facility] - Assessment Assessment (Free Text/Narrative):: POD#1 - left TKA - Plan Plan (Free Text/Narrative):: 1. Hgb 13.2. 2. ASA 325mg PO BID. Frequent mobility, SCDs. 3. Discharge to home today. 4. Outpatient therapy. The pt's case was discussed with Dr. Majano.
--- NOTE | 2018-02-15 08:13 | PCM48HPAN ---
Post Anesthesia Note - EVALUATION WITHIN 48HRS OF ANESTHETIC Vital Signs in Normal Range: Yes Patient Participated in Evaluation: Yes Respiratory Function Stable: Yes Airway Patent: Yes (O2 on) Cardiovascular Function Stable: Yes Hydration Status Stable: Yes Pain Control Satisfactory: Yes Nausea and Vomiting Control Satisfactory: Yes (occasional nausea- no emesis last evening) Mental Status Recovered: Yes Pulse Rate: 72 Resp Rate: 15 Temperature: 97.3 F Blood Pressure: 121/75
[2018-02-15] MEDS ORDERED: Loratadine 10 MG Tab PO SCH (09:00)
[2018-02-15] MEDS ORDERED: Vitamin B Complex With Vitamin C Cap PO SCH (09:00)
[2018-02-15] MEDS ORDERED: Aspirin 325 MG Tab.EC PO SCH (09:00)
[2018-02-15] MEDS: Docusate Sodium 100 MG Cap PO SCH (09:41)
[2018-02-15] MEDS: Formoterol/Mometasone 200-5 MCG 8.8 GM Inhaler IH SCH (09:52)
--- NOTE | 2018-02-15 13:15 | PCM.DCSUM1 ---
Discharge Summary - Hospital Course Brief History: Libertad is a 67 yo female who underwent left TKA with Dr. Majano on 02-14-2018. The procedure was completed under spinal anesthesia with MAC. The pt tolerated the procedure well and was admitted to the Medical-Surgical Unit. Medical management was provided by the Hospitalist service. The pt's Hospital course was uneventful. The pt's Hgb on POD#1 was 13.2. On POD#1, 325mg ASA BID was initiated for VTE prophylaxis. SCDs and TEDs were also ordered. A Mepilex dressing was placed at the incision site at the time of surgery and remained clean and dry. The pt participated in P.T. and O.T. and progressed well. The pt was allowed to WBAT. On POD#1, the pt was deemed appropriate to discharge to home. - Discharge Data Discharge Date: 02/15/18 Discharge Disposition: Home, Self-Care 01 Condition: Good - Patient Summary/Data Consults: Consultations 02/14/18 06:42 OT Evaluation and Treatment [CONS] Routine PT Evaluation and Treatment [CONS] Routine 02/14/18 06:43 Consult to Physician [CONS] Routine - Patient Instructions Diet: Usual Diet as Tolerated Activity: Apply Ice, As Tolerated, Elevate Extremity, Full Weight Bearing Driving: Do Not Drive Showering/Bathing: May Shower Wound/Incision Care: Keep Operative Site/Wound Site Clean and Dry, Do NOT Change Dressing Notify Provider of: Fever, Increased Pain, Swelling and Redness, Drainage, Nausea and/or Vomiting Other/Special Instructions: Please get up and moving around every hour while awake. This helps to prevent blood clots. Please use your walker and have help with mobility as needed. Please take a 325mg ASPIRIN TWICE DAILY. This also helps to prevent blood clots. The aspirin is being used for blood clot prevention and not for pain management, so please do not miss a dose of the medication. At home, please complete the exercises that you learned during the Hospital stay. Schedule for physical therapy. Use the pain medication as needed. The medication may cause drowsiness and constipation. Contact your primary care provider for instructions if you are constipated. You may use a stool softener like docusate sodium or Colace 100mg twice daily and/or a laxative like Miralax daily for constipation. Increase your water and fiber intake while you are using the pain medication. Please try to wean from use of the pain medication as soon as able. Wear the TRACY hose during the day and you may remove these at night. Elevate the limb to decrease swelling. Place ice to the area often. Place a towel between your skin and the blue pad. Increase your protein intake while you are healing. If you have diabetes, please closely monitor your blood sugars and notify your primary care provider with abnormal values. Call the Clinic with questions or concerns - [phone]. - Discharge Plan Prescriptions/Med Rec: Acetaminophen/oxyCODONE [Percocet 325-5 MG] 1 - 2 tab PO Q6H PRN #60 tablet PRN Reason: Pain Aspirin [Ecotrin] 325 mg PO BID #84 tab.ec Cyclobenzaprine [Flexeril] 10 mg PO TID PRN #40 tablet PRN Reason: Spasms Home Medications: Home Meds ALPRAZolam [Xanax] 0.5 - 1 tab PO Q8H PRN 02/13/18 [History] Budesonide/Formoterol Fumarate [Symbicort 160-4.5 Mcg Inhaler] 1 puff INH BID [History] Ca Carbonate/Vitamin D3/Vit K [Calcium + D Soft Chewable Tab] 1 tab PO TID 02/13 [History] Cetirizine [ZyrTEC] 10 mg PO DAILY 02/13/18 [History] Lansoprazole [Prevacid] 15 mg PO DAILY PRN 02/13/18 [History] Levothyroxine 150 mcg PO DAILY 02/13/18 [History] Montelukast [Singulair] 10 mg PO DAILY PRN 02/13/18 [History] Triamcinolone Acetonide [Nasacort] 1 spray INH DAILY PRN 02/13/18 [History] Vitamin B Complex 1 cap PO DAILY 02/13/18 [History] valACYclovir HCl [Valacyclovir] 1,000 mg PO BID PRN 02/13/18 [History] Acetaminophen/oxyCODONE [Percocet 325-5 MG] 1 - 2 tab PO Q6H PRN #60 tablet [Rx] Aspirin [Ecotrin] 325 mg PO BID #84 tab.ec 02/15/18 [Rx] Bisacodyl [Dulcolax] 5 mg PO DAILY PRN tablet 02/15/18 [Rx] Cyclobenzaprine [Flexeril] 10 mg PO TID PRN #40 tablet 02/15/18 [Rx] Docusate Sodium [Colace] 100 mg PO BID cap 02/15/18 [Rx] Magnesium Hydroxide [Milk of Magnesia] 30 ml PO BID PRN cup 02/15/18 [Rx] Sennosides [Senna] 8.6 mg PO BID PRN tablet 02/15/18 [Rx] Patient Handouts: Total Knee Replacement, Care After, [id number], Knee Arthroscopy, Care After Referrals: Denise Wolf PA-C [Physician Super[facility]] - 02/22/18 3:00 pm (follow up appointment 02/22/18 at 0300 pm with Denise Wolf follwo up appointment 03/01/18 at 0300 pm with Denise) - Patient Data Vitals - Most Recent: Last Vital Signs Temp 97.3 F 02/15/18 08:13 Pulse 72 02/15/18 08:13 Resp 15 02/15/18 08:13 BP 121/75 02/15/18 08:13 Pulse Ox 91 L 02/15/18 08:01 Weight - Most Recent: 239 lb I&O - Last 24 hours: Intake & Output 02/14/18 02/15/18 02/15/18 22:59 06:59 14:59 Intake Total 120 360 Output Total 490 550 Balance -370 -550 360 Lab Results - Last 24 hrs: Laboratory Results - last 24 hr 02/15/18 02/15/18 Range/Units 05:54 05:54 WBC 7.04 (3.98-10.04) K/mm3 RBC 4.67 (3.98-5.22) M/mm3 Hgb 13.2 (11.2-15.7) gm/L Hct 42.2 (34.1-44.9) % MCV 90.4 (79.4-94.8) fl MCH 28.3 (25.6-32.2) pg MCHC 31.3 L (32.2-35.5) g/dl RDW Std Deviation 46.3 (36.4-46.3) fL Plt Count 216 (182-369) K/mm3 MPV 10.2 (9.4-12.3) fl Sodium 137 (136-145) mEq/L Potassium 4.1 (3.5-5.1) mEq/L Chloride 101 (98-107) mEq/L Carbon Dioxide 28 (21-32) mEq/L Anion Gap 12.1 (5-15) BUN 14 (7-18) mg/dL Creatinine 0.8 (0.55-1.02) mg/dL Est Cr Clr Drug Dosing 70.34 mL/min Estimated GFR (MDRD) > 60 (>60) mL/min BUN/Creatinine Ratio 17.5 (14-18) Glucose 119 H (80-115) mg/dL Calcium 8.5 (8.5-10.1) mg/dL Total Bilirubin 0.6 (0.2-1.0) mg/dL AST 21 (15-37) U/L ALT 26 (14-59) U/L Alkaline Phosphatase 59 (46-116) U/L Total Protein 6.4 (6.4-8.2) g/dl Albumin 3.3 L (3.4-5.0) g/dl Globulin 3.1 gm/dL Albumin/Globulin Ratio 1.1 (1-2) Med Orders - Current: Current Medications Alprazolam (Xanax) 0.5 - 1 mg PO Q8H PRN PRN Reason: Anxiety Aspirin (Ecotrin) 325 mg PO BID [facility] Last Admin: 02/15/18 09:40 Dose: 325 mg Bisacodyl (Dulcolax) 5 mg PO DAILY PRN PRN Reason: Constipation Cyclobenzaprine HCl (Flexeril) 10 mg PO TID PRN PRN Reason: Spasms Last Admin: 02/15/18 06:48 Dose: 10 mg Docusate Sodium (Colace) 100 mg PO BID [facility] Last Admin: 02/15/18 09:41 Dose: 100 mg Flunisolide (Nasalide Nasal [place]) 0 ml NASBOTH DAILY PRN PRN Reason: Allergies Hydromorphone HCl (Dilaudid) 0.2 mg IVPUSH Q2H PRN PRN Reason: breakthrough pain Ketorolac Tromethamine (Toradol) 15 mg IVPUSH Q6H PRN PRN Reason: Pain Last Admin: 02/15/18 01:07 Dose: 15 mg Levothyroxine Sodium (Levothyroxine) 150 mcg PO ACBRK [facility] Last Admin: 02/15/18 06:48 Dose: 150 mcg Loratadine (Claritin) 10 mg PO DAILY [facility] Last Admin: 02/15/18 09:41 Dose: 10 mg Magnesium Hydroxide (Milk Of Magnesia) 30 ml PO BID PRN PRN Reason: Constipation Mometasone Furoate/Formoterol Fumar (Dulera 200-5 Mcg) 1 puff IH BID [facility] Last Admin: 02/15/18 09:52 Dose: Not Given Montelukast Sodium (Singulair) 10 mg PO DAILY PRN PRN Reason: Allergies Naloxone HCl (Narcan) 0.1 mg IVPUSH Q5M PRN PRN Reason: Oversedation Ondansetron HCl (Zofran) 4 mg IVPUSH Q6H PRN PRN Reason: Nausea/Vomiting Oxycodone/Acetaminophen (Percocet 325-5 Mg) 1 - 2 tab PO Q4H PRN PRN Reason: Pain Last Admin: 02/15/18 09:41 Dose: 2 tab Pantoprazole Sodium (Protonix) 40 mg PO DAILY@0700 PRN PRN Reason: Heartburn Senna (Senna) 8.6 mg PO BID PRN PRN Reason: Constipation Valacyclovir HCl (Valtrex) 1,000 mg PO BID PRN PRN Reason: cold sores Vitamin B Complex/Vitamin C (Super B With Vitamin C) 1 cap PO DAILY [facility] Last Admin: 02/15/18 09:41 Dose: 1 cap Discontinued Medications Acetaminophen (Tylenol) 975 mg PO ASDIRECTED [facility] Stop: 02/14/18 23:00 Last Admin: 02/14/18 08:46 Dose: 975 mg Bupivacaine HCl (Marcaine 0.25%) Confirm Administered Dose 30 ml .ROUTE .STK- MED ONE Stop: 02/14/18 08:29 Last Admin: 02/14/18 11:31 Dose: 30 ml Bupivacaine HCl (Sensorcaine-Mpf 0.75%) Confirm Administered Dose 30 ml .ROUTE .STK-MED ONE Stop: 02/14/18 10:37 Cefazolin Sodium (Ancef) Confirm Administered Dose 2 gm .ROUTE .STK-MED ONE Stop: 02/14/18 07:14 Last Admin: 02/14/18 11:26 Dose: 2 gm Cefazolin Sodium (Ancef) Confirm Administered Dose 2 gm .ROUTE .STK-MED ONE Stop: 02/14/18 08:29 Morphine Sulfate 8 mg/Epinephrine HCl 0.3 mg/Cefuroxime Sodium 750 mg/Ketorolac Tromethamine 30 mg/Sodium Chloride 27.9 ml 0 mg .XX ONETIME ONE Stop: 02/14/18 10:01 Last Admin: 02/14/18 14:05 Dose: Not Given Epinephrine HCl (Adrenalin) Confirm Administered Dose 1 mg .ROUTE .STK-MED ONE Stop: 02/14/18 11:51 Famotidine (Pepcid) 20 mg PO Q12H [facility] Last Admin: 02/15/18 06:48 Dose: 20 mg Fentanyl (Sublimaze) Confirm Administered Dose 100 mcg .ROUTE .STK-MED ONE Stop: 02/14/18 07:14 Fentanyl (Sublimaze) 50 mcg IVPUSH Q5M PRN PRN Reason: pain Stop: 02/14/18 14:00 Hydromorphone HCl (Dilaudid) 0.5 mg IVPUSH ONETIME ONE Stop: 02/14/18 11:46 Last Admin: 02/14/18 14:05 Dose: Not Given Lactated Ringer's (Ringers, Lactated) 1,000 mls @ 125 mls/hr IV ASDIRECTED [facility] Stop: 02/14/18 23:00 Last Admin: 02/14/18 09:34 Dose: 125 mls/hr Cefazolin Sodium/Dextrose 2 gm (/ Premix) 50 mls @ 100 mls/hr IV Q8H [facility] Stop: 02/15/18 09:29 Last Admin: 02/15/18 09:32 Dose: 100 mls/hr Lactated Ringer's (Ringers, Lactated) Confirm Administered Dose 1,000 mls @ as directed .ROUTE .STK-MED ONE Stop: 02/14/18 07:14 Iodine (Iodine 2% Mild Tincture) Confirm Administered Dose 30 ml .ROUTE .STK- MED ONE Stop: 02/14/18 08:29 Last Admin: 02/14/18 11:24 Dose: 18 ml Ketorolac Tromethamine (Toradol) Confirm Administered Dose 30 mg .ROUTE .STK- MED ONE Stop: 02/14/18 07:14 Lidocaine/Sodium Bicarbonate (Buffered Lidocaine 1% In Ns 8.4%) 0.25 ml IDERM ONETIME PRN PRN Reason: Prior to IV Start Stop: 02/14/18 18:00 Last Admin: 02/14/18 08:35 Dose: 0.25 ml Midazolam HCl (Versed 1 Mg/Ml) Confirm Administered Dose 2 mg .ROUTE .STK-MED ONE Stop: 02/14/18 07:14 Non-Formulary Medication (Ca Carbonate/Vitamin D3/Vit K [Calcium + D Soft Chewable Tab]) 1 tab PO TID [facility] Ondansetron HCl (Zofran) Confirm Administered Dose 4 mg .ROUTE .STK-MED ONE Stop: 02/14/18 10:56 Oxycodone HCl (Oxycontin) 10 mg PO ONETIME ONE Stop: 02/14/18 06:01 Last Admin: 02/14/18 08:47 Dose: 10 mg Oxycodone HCl (Oxycontin) 10 mg PO ONETIME ONE Stop: 02/14/18 08:46 Last Admin: 02/14/18 08:49 Dose: Not Given Phenylephrine HCl (Manoj-Synephrine) Confirm Administered Dose 10 mg .ROUTE .STK- MED ONE Stop: 02/14/18 10:38 Pregabalin (Lyrica) 50 mg PO ASDIRECTED [facility] Stop: 02/14/18 18:00 Last Admin: 02/14/18 08:46 Dose: 50 mg Propofol (Diprivan 20 Ml) Confirm Administered Dose 400 mg .ROUTE .STK-MED ONE Stop: 02/14/18 07:14 Propofol (Diprivan 20 Ml) Confirm Administered Dose 200 mg .ROUTE .STK-MED ONE Stop: 02/14/18 07:19 Propofol (Diprivan 20 Ml) Confirm Administered Dose 200 mg .ROUTE .STK-MED ONE Stop: 02/14/18 11:39 Ropivacaine (Naropin 0.5%) Confirm Administered Dose 30 ml .ROUTE .STK-MED ONE Stop: 02/14/18 11:52 Scopolamine (Transderm-Scop) 1.5 mg TRDERM ONETIME ONE Stop: 02/14/18 07:01 Last Admin: 02/14/18 08:15 Dose: 1.5 mg Sodium Chloride (Saline Flush) 10 ml FLUSH ASDIRECTED PRN PRN Reason: Keep Vein Open Stop: 02/14/18 18:00 Tranexamic Acid (Cyklokapron) Confirm Administered Dose 1,000 mg .ROUTE .STK- MED ONE Stop: 02/14/18 08:29 Last Admin: 02/14/18 11:38 Dose: 1,000 mg Vancomycin HCl (Vancomycin) Confirm Administered Dose 1 gm .ROUTE .STK-MED ONE Stop: 02/14/18 08:29 Last Admin: 02/14/18 11:34 Dose: 1 gm
--- NOTE | 2018-02-21 22:18 | PCM.OPNOTE ---
- General Post-Op/Procedure Note Date of Surgery/Procedure: 02/14/18 Operative Procedure(s): left total knee arthroplasty Pre Op Diagnosis: left knee osteoarthrosis Post-Op Diagnosis: Same Anesthesia Technique: Local, MAC, Spinal Primary Surgeon: Dereck Majano Anesthesia Provider: Kavya Levi Placement Secretary: Denise Wolf Placement Secretary: Dorene Underwood EBKatiuska in mLs: 60 Complications: None Condition: Good
--- NOTE | 2018-02-21 23:08 | OR ---
DATE OF OPERATION: 02/14/2018 SURGEON: Dereck Majano MD OPERATION PERFORMED: Left total knee arthroplasty. PREOPERATIVE DIAGNOSIS: Left knee osteoarthrosis. POSTOPERATIVE DIAGNOSIS: Left knee osteoarthrosis. ANESTHESIA: Local MAC with spinal. ANESTHESIA PROVIDER: Kavya Levi. ASSISTANTS: Denise Beltran PA-C, and Dorene Underwood LPN. ESTIMATED BLOOD LOSS: 60 mL. COMPLICATIONS: None. CONDITION: Stable. IMPLANTS: 1. Framingham size 6 PS femur. 2. Framingham size 5 universal tibial base plate. 3. Casa size 5, 9 mm PS X3 polyethylene. 4. Framingham size 32 x 10 mm asymmetric cemented patella. DESCRIPTION OF PROCEDURE: The patient was identified in the preop holding area. Proper site was marked and identified by the surgeon. The patient was taken back to the operating theater. After adequate anesthesia, the patient's left lower extremity had a nonsterile tourniquet applied and it was then sterilely prepped and draped in the usual sterile fashion. OR timeout was performed. The patient received 2 g IV Ancef. At this time, left lower extremity was exsanguinated. Tourniquet was insufflated to 300 mmHg. Standard medial parapatellar incision was made. Medial parapatellar arthrotomy was created. Deep fibers of the MCL were raised and anterior fat pad was resected. At this time, attention was turned to the patella. Patella measured 24, it was resected to a 14 patella for a 32 x 10 mm patella. Drill holes were then drilled and found to be in adequate position. The drill was then drilled in the distal femur and the intramedullary distal femoral cutting guide was then placed. 10 mm was resected off the distal femur and was found to be an adequate resection. Sizing guide was placed. It was found to be a size 6 femur that was shown on the implant record at the beginning of this dictation. The drill holes were drilled for the epicondylar axis using Whitesides line and epicondyles as reference. At this time, the 4-in-1 cutting block was placed. An anterior posterior and anterior and posterior chamfer cuts were then completed. The correct size box cut was then placed and the box cut was completed and found to be an adequate resection. Attention was turned to the tibia. The posterior medial lateral retractors were placed. The extramedullary tibial guide was placed. It was placed in the old footprint of the ACL. It was aligned with the center of the ankle and 0 degrees of slope, 9 mm was then resected off the unaffected lateral side. There was found to be an acceptable reduction. At this time, posterior osteophytes were removed along with medial and lateral meniscus. A trial implant was placed with a correct sized tibia that was mentioned at the beginning of the dictation. A Casa size 5, 9 mm PS X3 polyethylene was then placed. The patient's knee was brought through range of motion. The patella was tracking centrally and was stable to varus and valgus stress. Alignment was found to be roughly at 0 degrees. At this time, cement was mixed on the back table. The tibia was stamped and drilled in proper rotation. All cut surfaces were irrigated with pulse lavage irrigation with Ancef and then completely dried. Once this was completed, then the cement was ready. The universal tibial base plate was cemented in place. Next, the Framingham size 6 PS femur cemented into place and the Framingham size 5, 9 mm PS X3 polyethylene was placed. The patient's knee was brought into full extension. Excess cement was removed. The patella was then cemented in place at this time. Tourniquet was deflated. One liter dilute Betadine solution was irrigated through the knee along with 3 L of pulse lavage irrigation with Ancef. Periarticular injection was then completed. The patient's knee was brought through a range of motion. Once the cement had time to set up and it was found to be stable to varus valgus stress, the patella was tracking centrally with full range of motion. At this time, a #2 barbed suture was used for closure of the medial parapatellar arthrotomy. Topical tranexamic acid was placed. 2-0 Vicryl was used subcutaneously, a running 3-0 Monocryl was used subcuticularly. The patient tolerated the procedure well and was sent to the PACU in stable condition. LANETTE /[id number]
== END 2018-02-15 13:48 | disposition home or self-care (01) | DRG 470 ==
LOC: JD.SDS 08:02 → JD.OB 11:26 → JD.SDS 16:10 → JD.MS 16:11
PROVIDERS: ADMIT Orthopaedic Surgery; ATTEND Orthopaedic Surgery
PROC: 0SRD0J9 Replacement of Left Knee Joint with Synthetic Substitute, Cemented, Open Approach (ICD-10-PCS; principal; 2018-02-14)
DX: M17.12 Unilateral primary osteoarthritis, left knee (principal); M25.762 Osteophyte, left knee; F41.9 Anxiety disorder, unspecified; K59.00 Constipation, unspecified; R11.0 Nausea; H91.90 Unspecified hearing loss, unspecified ear; K57.90 Diverticulosis of intestine, part unspecified, without perforation or abscess without bleeding; E03.9 Hypothyroidism, unspecified; J30.9 Allergic rhinitis, unspecified; G89.29 Other chronic pain; J45.40 Moderate persistent asthma, uncomplicated; M89.9 Disorder of bone, unspecified; A60.04 Herpesviral vulvovaginitis; E66.9 Obesity, unspecified; Z68.36 Body mass index [BMI] 36.0-36.9, adult; Z87.891 Personal history of nicotine dependence; Z88.6 Allergy status to analgesic agent; Z88.1 Allergy status to other antibiotic agents; Z90.49 Acquired absence of other specified parts of digestive tract; Z90.710 Acquired absence of both cervix and uterus
CPT/HCPCS: 36415; 73560-26-LT; 73560-LT; 80053; 85027; 97110-GP; 97116-GP; 97161-GP; 97165-GO; 97535-GO; A9270; A9270-GY; C1713; C1776; J0171; J0690; J0697; J1885; J2250; J2270; J2370; J2405; J2704; J2795; J3010; J3370; J3490; J7120

== ENCOUNTER 2018-05-12 14:44 | Observation (INO) | payer OTHER, MEDICARE ==
--- NOTE | 2018-05-12 16:23 | US ---
Left lower extremity deep venous ultrasound: Duplex and color flow imaging was obtained of the left common femoral, proximal greater saphenous, superficial femoral, popliteal, posterior tibial and peroneal veins. Right common femoral vein was also evaluated. Findings: Normal phasic flow, augmentation and compression is seen. Impression: 1. No evidence of deep venous thrombosis within left lower extremity or within the right common femoral vein. Diagnostic code #1
[2018-05-12] MEDS ORDERED: Sodium Chloride 0.9% 10 ML Syringe FLUSH PRN (16:37)
[2018-05-12] MEDS ORDERED: Iopamidol 755 MG/ML 50 ML Bottle IVPUSH ONE (16:37)
[2018-05-12] MEDS ORDERED: Iopamidol 755 Mg/ML 100 ML Bottle IVPUSH ONE (16:37)
[2018-05-12] MEDS ORDERED: Sodium Chloride 0.9% 100 ML IV SCH (16:45)
--- NOTE | 2018-05-12 16:54 | EDM.PDOC ---
ED HPI GENERAL MEDICAL PROBLEM - General Chief Complaint: Cardiovascular Problem Stated Complaint: POSS. BLOOD CLOT-SENT FROM [facility] Time Seen by Provider: 05/12/18 16:54 Source of Information: Reports: Patient History Limitations: Reports: No Limitations - History of Present Illness INITIAL COMMENTS - FREE TEXT/NARRATIVE: 68-year-old female presents for evaluation and treatment of left lower leg swelling. She presented to the [facility] placenta was to ED to rule out a blood clot. Reports that the swelling started yesterday. She is denying pain in her leg. patient reports that she has had some substernal chest pain day before yesterday. She has also been feeling short of breath recently, most recently today. She attributes these symptoms to her anxiety. She denies any nausea, vomiting, diaphoresis lightheadedness or syncope. Patient is not on any blood thinners. She takes an 81 mg aspirin daily. Past surgical history of a left knee replacement January 2018. Patient reports that she recently was found to have an aortic aneurysm, 4.5cm. She is scheduled see Dr. Derick Lynn in about 3 months for follow-up for this. Patient denies any cardiac history. - Related Data Allergies Allergy/AdvReac Type Severity Reaction Status Date / Time metronidazole [From Flagyl] AdvReac Nausea and Verified 05/12/18 14:52 Vomiting morphine AdvReac Nausea and Verified 05/12/18 14:52 Vomiting Home Meds: Home Meds ALPRAZolam [Xanax] 0.5 - 1 tab PO Q8H PRN 02/13/18 [History] Budesonide/Formoterol Fumarate [Symbicort 160-4.5 Mcg Inhaler] 1 puff INH BID [History] Ca Carbonate/Vitamin D3/Vit K [Calcium + D Soft Chewable Tab] 1 tab PO TID 02/13 [History] Cetirizine [ZyrTEC] 10 mg PO DAILY 02/13/18 [History] Lansoprazole [Prevacid] 15 mg PO DAILY PRN 02/13/18 [History] Levothyroxine 150 mcg PO DAILY 02/13/18 [History] Montelukast [Singulair] 10 mg PO DAILY PRN 02/13/18 [History] Triamcinolone Acetonide [Nasacort] 1 spray INH DAILY PRN 02/13/18 [History] Vitamin B Complex 1 cap PO DAILY 02/13/18 [History] valACYclovir HCl [Valacyclovir] 1,000 mg PO BID PRN 02/13/18 [History] Acetaminophen/oxyCODONE [Percocet 325-5 MG] 1 - 2 tab PO Q6H PRN #60 tablet [Rx] Bisacodyl [Dulcolax] 5 mg PO DAILY PRN tablet 02/15/18 [Rx] Cyclobenzaprine [Flexeril] 10 mg PO TID PRN #40 tablet 02/15/18 [Rx] Docusate Sodium [Colace] 100 mg PO BID cap 02/15/18 [Rx] Magnesium Hydroxide [Milk of Magnesia] 30 ml PO BID PRN cup 02/15/18 [Rx] Sennosides [Senna] 8.6 mg PO BID PRN tablet 02/15/18 [Rx] Past Medical History HEENT History: Reports: Allergic Rhinitis, Hard of Hearing, Sinusitis, Other ( See Below) Other HEENT History: nasal polyp, hearing loss, hypertorphy of nasal turbinates , tinnitis, wears glasses, has hearing aids Cardiovascular History: Reports: None Respiratory History: Reports: Asthma, SOB, Other (See Below) Other Respiratory History: wheezing Gastrointestinal History: Reports: Diverticulosis Genitourinary History: Reports: Other (See Below) Other Genitourinary History: acute cystitis BOX STAMPER History: Reports: Other (See Below) Other BOX STAMPER History: herpes simplex, vulvovaginitis Musculoskeletal History: Reports: Other (See Below) Other Musculoskeletal History: left knee pain Neurological History: Reports: None Psychiatric History: Reports: Anxiety, Other (See Below) Other Psychiatric History: fatigue Endocrine/Metabolic History: Reports: Hypothyroidism, Obesity/BMI 30+ Hematologic History: Reports: None Immunologic History: Reports: None Oncologic (Cancer) History: Reports: None Dermatologic History: Reports: None - Past Surgical History HEENT Surgical History: Reports: Adenoidectomy, Naso-Sinus Surgery, Tonsillectomy Cardiovascular Surgical History: Reports: None Respiratory Surgical History: Reports: None GI Surgical History: Reports: Appendectomy, Cholecystectomy, Colonoscopy Female Surgical History: Reports: Hysterectomy Male Surgical History: Reports: None Endocrine Surgical History: Reports: None Neurological Surgical History: Reports: None Musculoskeletal Surgical History: Reports: Other (See Below) Other Musculoskeletal Surgeries/Procedures:: bilateral bunionectomy Oncologic Surgical History: Reports: None Dermatological Surgical History: Reports: None Social & Family History - Caffeine Use Caffeine Use: Reports: None ED ROS GENERAL - Review of Systems Review Of Systems: See Below Constitutional: Denies: Diaphoresis Respiratory: Reports: Shortness of Breath Cardiovascular: Reports: Chest Pain (2 days ago), Edema (left leg). Denies: Lightheadedness GI/Abdominal: Denies: Nausea, Vomiting Musculoskeletal: Denies: Leg Pain Neurological: Denies: Syncope Psychiatric: Reports: Anxiety ED EXAM, GENERAL - Physical Exam Exam: See Below Exam Limited By: No Limitations General Appearance: Alert, WD/WN, No Apparent Distress Throat/Mouth: Normal Inspection, Normal Lips, Normal Voice, No Airway Compromise Respiratory/Chest: No Respiratory Distress, Lungs Clear, Normal Breath Sounds, Chest Non-Tender Cardiovascular: Normal Peripheral Pulses, Regular Rate, Rhythm, No Murmur Peripheral Pulses: 3+: Posterior Tibial (L), Posterior Tibial (R), Dorsalis Pedis (L), Dorsalis Pedis (R) Extremities: Normal Inspection, Normal Capillary Refill, Other (2+ pitting edema left lower leg). No: Josefina's Sign Neurological: Alert, Oriented, Normal Cognition Psychiatric: Normal Affect, Normal Mood Skin Exam: Warm, Dry, Normal Color EKG INTERPRETATION EKG Date: 05/12/18 Time: 16:15 Rhythm: NSR Rate (Beats/Min): 65 [place]: Normal P-Wave: Present QRS: Normal ST-T: Normal QT: Normal EKG Interpretation Comments: NSR at 65 bpm. QT mildly prolonged. Otherwise normal EKG. Reviewed by myself and Dr. Aguilar. Course - Vital Signs Last Recorded V/S: Last Vital Signs Temp 98.8 F 05/12/18 21:00 Pulse 66 05/12/18 20:28 Resp 18 05/12/18 20:28 BP 158/95 H 05/12/18 20:47 Pulse Ox 96 05/12/18 20:28 - Orders/Labs/Meds Orders: Active Orders 24 hr Category Date Time Status Patient Status [ADT] Routine ADT 05/12/18 20:04 Ordered Cardiac Monitoring [RC] . DIRECTED Care 05/12/18 18:18 Active EKG 12 Lead [EKG Documentation Completion] [RC] STAT Care 05/12/18 15:35 Active Chest 1V Frontal [CR] Stat Exams 05/12/18 15:35 Taken ALPRAZolam [Xanax] Med 05/12/18 22:47 Ordered DOSE mg PO Q8H PRN Bisacodyl [Dulcolax] Med 05/12/18 22:47 Ordered 5 mg PO DAILY PRN Budesonide/Formoterol Fumarate [Symbicort 160-4.5 Mcg Med 05/13/18 09:00 Ordered Inhaler] 1 puff INH BID Ca Carbonate/Vitamin D3/Vit K [Calcium + D Soft Med 05/13/18 09:00 Ordered Chewable Tab] 1 tab PO TID Cetirizine Med 05/13/18 09:00 Ordered 10 mg PO DAILY Cyclobenzaprine [Flexeril] Med 05/12/18 22:47 Ordered 10 mg PO TID PRN Docusate Sodium [Colace] Med 05/13/18 09:00 Ordered 100 mg PO BID Lansoprazole [Prevacid] Med 05/12/18 22:47 Ordered 15 mg PO DAILY PRN Levothyroxine Med 05/13/18 09:00 Ordered 150 mcg PO DAILY Magnesium Hydroxide [Milk of Magnesia] Med 05/12/18 22:47 Ordered 30 ml PO BID PRN Montelukast [Singulair] Med 05/12/18 22:47 Ordered 10 mg PO DAILY PRN Sennosides [Senna] Med 05/12/18 22:47 Ordered 8.6 mg PO BID PRN Sodium Chloride 0.9% [Normal Saline] 100 ml Med 05/12/18 16:45 Active IV ASDIRECTED Sodium Chloride 0.9% [Saline Flush] Med 05/12/18 16:37 Active 10 ml FLUSH ONETIME PRN Triamcinolone Acetonide [Nasacort] Med 05/12/18 22:47 Ordered 1 spray INH DAILY PRN Vitamin B Complex Med 05/13/18 09:00 Ordered 1 cap PO DAILY valACYclovir [Valtrex] Med 05/12/18 22:47 Ordered 1,000 mg PO BID PRN Medication Orders Alprazolam (Xanax) mg PO Q8H PRN PRN Reason: Anxiety Bisacodyl (Dulcolax) 5 mg PO DAILY PRN PRN Reason: Constipation Cyclobenzaprine HCl (Flexeril) 10 mg PO TID PRN PRN Reason: Spasms Docusate Sodium (Colace) 100 mg PO BID SPENCER Sodium Chloride (Normal Saline) 100 mls @ 65 mls/hr IV ASDIRECTED SPENCER Last Admin: 05/12/18 16:58 Dose: 65 mls/hr Levothyroxine Sodium (Levothyroxine) 150 mcg PO DAILY SPENCER Magnesium Hydroxide (Milk Of Magnesia) 30 ml PO BID PRN PRN Reason: Constipation Montelukast Sodium (Singulair) 10 mg PO DAILY PRN PRN Reason: Allergies Non-Formulary Medication (Budesonide/Formoterol Fumarate [Symbicort 160-4.5 Mcg Inhaler]) 1 puff INH BID SPENCER Non-Formulary Medication (Ca Carbonate/Vitamin D3/Vit K [Calcium + D Soft Chewable Tab]) 1 tab PO TID SPENCER Non-Formulary Medication (Cetirizine) 10 mg PO DAILY SPENCER Non-Formulary Medication (Lansoprazole [Prevacid]) 15 mg PO DAILY PRN PRN Reason: Heartburn Non-Formulary Medication (Triamcinolone Acetonide [Nasacort]) 1 spray INH DAILY PRN PRN Reason: Allergies Non-Formulary Medication (Vitamin B Complex) 1 cap PO DAILY [facility] Senna (Senna) 8.6 mg PO BID PRN PRN Reason: Constipation Sodium Chloride (Saline Flush) 10 ml FLUSH ONETIME PRN PRN Reason: IV FLUSH Last Admin: 05/12/18 16:58 Dose: 10 ml Valacyclovir HCl (Valtrex) 1,000 mg PO BID PRN PRN Reason: cold sores Labs: Laboratory Tests 05/12/18 05/12/18 05/12/18 Range/Units 15:50 15:50 15:50 WBC 7.25 (3.98-10.04) K/mm3 RBC 4.95 (3.98-5.22) M/mm3 Hgb 13.8 (11.2-15.7) gm/L Hct 43.4 (34.1-44.9) % MCV 87.7 (79.4-94.8) fl MCH 27.9 (25.6-32.2) pg MCHC 31.8 L (32.2-35.5) g/dl RDW Std Deviation 47.6 H (36.4-46.3) fL Plt Count 256 (182-369) K/mm3 MPV 9.9 (9.4-12.3) fl Neut % (Auto) 48.9 (34.0-71.1) % Lymph % (Auto) 30.9 (19.3-51.7) % Floyd % (Auto) 14.1 H (4.7-12.5) % Eos % (Auto) 5.7 (0.7-5.8) Baso % (Auto) 0.3 (0.1-1.2) % Neut # (Auto) 3.55 (1.56-6.13) K/mm3 Lymph # (Auto) 2.24 (1.18-3.74) K/mm3 Floyd # (Auto) 1.02 H (0.24-0.36) K/mm3 Eos # (Auto) 0.41 H (0.04-0.36) K/mm3 Baso # (Auto) 0.02 (0.01-0.08) K/mm3 PT 10.2 (9.5-12.1) SECONDS INR 0.93 APTT 25 (24-31) SECONDS D-Dimer, Quantitative (0.19-0.50) mg/L Sodium 142 (136-145) mEq/L Potassium 3.7 (3.5-5.1) mEq/L Chloride 106 (98-107) mEq/L Carbon Dioxide 31 (21-32) mEq/L Anion Gap 8.7 (5-15) BUN 19 H (7-18) mg/dL Creatinine 0.9 (0.55-1.02) mg/dL Est Cr Clr Drug Dosing 61.65 mL/min Estimated GFR (MDRD) > 60 (>60) mL/min BUN/Creatinine Ratio 21.1 H (14-18) Glucose 98 (80-115) mg/dL Calcium 8.3 L (8.5-10.1) mg/dL Total Bilirubin 0.4 (0.2-1.0) mg/dL AST 20 (15-37) U/L ALT 33 (14-59) U/L Alkaline Phosphatase 86 (46-116) U/L CK-MB (CK-2) (0-3.6) ng/ml Troponin I 0.068 H* (0.00-0.056) ng/mL NT-Pro-B Natriuret Pep (0-125) pg/mL Total Protein 6.7 (6.4-8.2) g/dl Albumin 3.5 (3.4-5.0) g/dl Globulin 3.2 gm/dL Albumin/Globulin Ratio 1.1 (1-2) 05/12/18 05/12/18 05/12/18 Range/Units 15:50 15:50 17:27 WBC (3.98-10.04) K/mm3 RBC (3.98-5.22) M/mm3 Hgb (11.2-15.7) gm/L Hct (34.1-44.9) % MCV (79.4-94.8) fl MCH (25.6-32.2) pg MCHC (32.2-35.5) g/dl RDW Std Deviation (36.4-46.3) fL Plt Count (182-369) K/mm3 MPV (9.4-12.3) fl Neut % (Auto) (34.0-71.1) % Lymph % (Auto) (19.3-51.7) % Floyd % (Auto) (4.7-12.5) % Eos % (Auto) (0.7-5.8) Baso % (Auto) (0.1-1.2) % Neut # (Auto) (1.56-6.13) K/mm3 Lymph # (Auto) (1.18-3.74) K/mm3 Floyd # (Auto) (0.24-0.36) K/mm3 Eos # (Auto) (0.04-0.36) K/mm3 Baso # (Auto) (0.01-0.08) K/mm3 PT (9.5-12.1) SECONDS INR APTT (24-31) SECONDS D-Dimer, Quantitative 1.51 H (0.19-0.50) mg/L Sodium (136-145) mEq/L Potassium (3.5-5.1) mEq/L Chloride (98-107) mEq/L Carbon Dioxide (21-32) mEq/L Anion Gap (5-15) BUN (7-18) mg/dL Creatinine (0.55-1.02) mg/dL Est Cr Clr Drug Dosing mL/min Estimated GFR (MDRD) (>60) mL/min BUN/Creatinine Ratio (14-18) Glucose (80-115) mg/dL Calcium (8.5-10.1) mg/dL Total Bilirubin (0.2-1.0) mg/dL AST (15-37) U/L ALT (14-59) U/L Alkaline Phosphatase (46-116) U/L CK-MB (CK-2) < 0.5 (0-3.6) ng/ml Troponin I (0.00-0.056) ng/mL NT-Pro-B Natriuret Pep 93 (0-125) pg/mL Total Protein (6.4-8.2) g/dl Albumin (3.4-5.0) g/dl Globulin gm/dL Albumin/Globulin Ratio (1-2) /10/18 Range/Units 18:10 WBC (3.98-10.04) K/mm3 RBC (3.98-5.22) M/mm3 Hgb (11.2-15.7) gm/L Hct (34.1-44.9) % MCV (79.4-94.8) fl MCH (25.6-32.2) pg MCHC (32.2-35.5) g/dl RDW Std Deviation (36.4-46.3) fL Plt Count (182-369) K/mm3 MPV (9.4-12.3) fl Neut % (Auto) (34.0-71.1) % Lymph % (Auto) (19.3-51.7) % Floyd % (Auto) (4.7-12.5) % Eos % (Auto) (0.7-5.8) Baso % (Auto) (0.1-1.2) % Neut # (Auto) (1.56-6.13) K/mm3 Lymph # (Auto) (1.18-3.74) K/mm3 [place] # (Auto) (0.24-0.36) K/mm3 Eos # (Auto) (0.04-0.36) K/mm3 Baso # (Auto) (0.01-0.08) K/mm3 PT (9.5-12.1) SECONDS INR APTT (24-31) SECONDS D-Dimer, Quantitative (0.19-0.50) mg/L Sodium (136-145) mEq/L Potassium (3.5-5.1) mEq/L Chloride (98-107) mEq/L Carbon Dioxide (21-32) mEq/L Anion Gap (5-15) BUN (7-18) mg/dL Creatinine (0.55-1.02) mg/dL Est Cr Clr Drug Dosing mL/min Estimated GFR (MDRD) (>60) mL/min BUN/Creatinine Ratio (14-18) Glucose (80-115) mg/dL Calcium (8.5-10.1) mg/dL Total Bilirubin (0.2-1.0) mg/dL AST (15-37) U/L ALT (14-59) U/L Alkaline Phosphatase (46-116) U/L CK-MB (CK-2) (0-3.6) ng/ml Troponin I 0.076 H* (0.00-0.056) ng/mL NT-Pro-B Natriuret Pep (0-125) pg/mL Total Protein (6.4-8.2) g/dl Albumin (3.4-5.0) g/dl Globulin gm/dL Albumin/Globulin Ratio (1-2) Meds: Medications Generic Name Dose Route Start Last Admin Trade Name Freq PRN Reason Stop Dose Admin Alprazolam mg 05/12/18 22:47 Xanax PO Q8H PRN Anxiety Bisacodyl 5 mg 05/12/18 22:47 Dulcolax PO DAILY PRN Constipation Cyclobenzaprine HCl 10 mg 05/12/18 22:47 Flexeril PO TID PRN Spasms Docusate Sodium 100 mg 05/13/18 09:00 Colace PO BID SPENCER Sodium Chloride 100 mls @ 65 mls/hr 05/12/18 16:45 05/12/18 16:58 Normal Saline IV 65 mls/hr ASDIRECTED SPENCER Administration Levothyroxine Sodium 150 mcg 05/13/18 09:00 Levothyroxine PO DAILY SPENCER Magnesium Hydroxide 30 ml 05/12/18 22:47 Milk Of Magnesia PO BID PRN Constipation Montelukast Sodium 10 mg 05/12/18 22:47 Singulair PO DAILY PRN Allergies Non-Formulary Medication 1 puff 05/13/18 09:00 Budesonide/Formoterol Fumarate [Symbicort 160-4.5 Mcg Inhaler] INH BID SPENCER Non-Formulary Medication 1 tab 05/13/18 09:00 Ca Carbonate/Vitamin D3/Vit K [Calcium + D Soft Chewable Tab] PO TID SPENCER Non-Formulary Medication 10 mg 05/13/18 09:00 Cetirizine PO DAILY SPENCER Non-Formulary Medication 15 mg 05/12/18 22:47 Lansoprazole [Prevacid] PO DAILY PRN Heartburn Non-Formulary Medication 1 spray 05/12/18 22:47 Triamcinolone Acetonide [Nasacort] INH DAILY PRN Allergies Non-Formulary Medication 1 cap 05/13/18 09:00 Vitamin B Complex PO DAILY SPENCER Senna 8.6 mg 05/12/18 22:47 Senna PO BID PRN Constipation Sodium Chloride 10 ml 05/12/18 16:37 05/12/18 16:58 Saline Flush FLUSH 10 ml ONETIME PRN Administration IV FLUSH Valacyclovir HCl 1,000 mg 05/12/18 22:47 Valtrex PO BID PRN cold sores Discontinued Medications Generic Name Dose Route Start Last Admin Trade Name Freq PRN Reason Stop Dose Admin Aspirin 324 mg 05/12/18 17:53 05/12/18 18:16 Aspirin PO 05/12/18 17:54 324 mg ONETIME ONE Administration Iopamidol 100 ml 05/12/18 16:37 05/12/18 16:58 Isovue-370 (76%) IVPUSH 05/12/18 16:38 100 ml ONETIME ONE Administration Iopamidol 50 ml 05/12/18 16:37 05/12/18 16:58 Isovue-370 (76%) IVPUSH 05/12/18 16:38 50 ml ONETIME ONE Administration Lorazepam 0.5 mg 05/12/18 19:24 Ativan IVPUSH 05/12/18 19:25 ONETIME ONE - Radiology Interpretation Free Text/Narrative:: Chest: Portable view of the chest was obtained. Comparison: Prior chest x-ray of 09/29/17. Heart is enlarged. Upper mediastinum is normal. Lungs show slight scarring within the left mid chest. Lungs otherwise are clear. Bony structures are grossly intact. Impression: 1. Stable cardiomegaly with linear scarring within the left midlung. 2. Nothing acute is seen on frontal chest x-ray. - Re-Assessments/Exams Free Text/Narrative Re-Assessment/Exam: 05/12/18 20:01 Once the patient's d-dimer returned elevated at 1.5 she was ordered a CT pulmonary angiogram. She declined pain medication and nausea medication throughout her ER stay. I ordered Troponin initially she was complaining of shortness of breath reported some chest pain yesterday. Initial troponin returned slightly above our normal limits at 0.068. I discussed the case with Dr. paez, black leather trimmer nutrition aide at [facility] in [place]. He did not feel she was actually having a heart attack did not need to come to [place]. He recommended trending troponins here in [place]. Did not offer any further recommendations. He felt that her troponin could be elevated because of anxiety. I went ahead and repeated the troponin in a returned slightly more elevated at 0.076 after about 2 and half hours. Patient's heart score is 4. I Do feel she should stay in the hospital for chest pain rule out. Discussed case with Dr. Fountain, hospice on-call. He agrees to the admission. Departure - Departure Time of Disposition: 20:05 Disposition: Refer to Observation Condition: Fair Clinical Impression: Left leg swelling, Elevated troponin Referrals: Norma Kessler, [employer] [Primary Care Provider] - Forms: ED Department Discharge Additional Instructions: Patient admitted to Dr. Fountain for a chest pain rule out. - My Orders Last 24 Hours: My Active Orders 05/12/18 15:35 EKG 12 Lead [EKG Documentation Completion] [RC] STAT Chest 1V Frontal [CR] Stat 05/12/18 16:37 Sodium Chloride 0.9% [Saline Flush] 10 ml FLUSH ONETIME PRN 05/12/18 16:45 Sodium Chloride 0.9% [Normal Saline] 100 ml IV ASDIRECTED 05/12/18 18:18 Cardiac Monitoring [RC] . DIRECTED 05/12/18 20:04 Patient Status [ADT] Routine - Assessment/Plan Last 24 Hours: My Active Orders 05/12/18 15:35 EKG 12 Lead [EKG Documentation Completion] [RC] STAT Chest 1V Frontal [CR] Stat 05/12/18 16:37 Sodium Chloride 0.9% [Saline Flush] 10 ml FLUSH ONETIME PRN 05/12/18 16:45 Sodium Chloride 0.9% [Normal Saline] 100 ml IV ASDIRECTED 05/12/18 18:18 Cardiac Monitoring [RC] . DIRECTED 05/12/18 20:04 Patient Status [ADT] Routine
--- NOTE | 2018-05-12 17:44 | CT ---
CT chest Technique: Multiple axial sections through the chest were obtained. Intravenous contrast was utilized. Study has been performed as a pulmonary angiogram protocol. Comparison: Prior chest CT exam of 04/29/18 which is an outside exam. Findings: Pulmonary arteries are well-opacified. No filling defects are seen to indicate pulmonary embolism. Mediastinum and hilar regions show no adenopathy or mass. Mild atherosclerotic calcification is noted within the aorta. Small portion of the visualized upper abdominal structures shows evidence of previous cholecystectomy. Bone window settings were reviewed which shows scattered degenerative change within the spine. Compression deformity is noted within the mid thoracic spine which is also seen on outside exam and is stable. Impression: 1. No findings of pulmonary embolism. 2. Other incidental findings as described above. Diagnostic code #2
[2018-05-12] MEDS ORDERED: Aspirin 81 MG Tab.Chew PO ONE (17:53)
[2018-05-12] MEDS ORDERED: LORazepam 2 MG/ML SDV IVPUSH ONE (19:24)
[2018-05-12] MEDS ORDERED: Cyclobenzaprine 10 MG Tab PO PRN (22:47)
[2018-05-12] MEDS ORDERED: Sennosides 8.6 MG Tab PO PRN (22:47)
[2018-05-12] MEDS ORDERED: ALPRAZolam 0.5 MG Tab PO PRN (22:47)
[2018-05-12] MEDS ORDERED: Bisacodyl 5 MG Tab PO PRN (22:47)
[2018-05-12] MEDS ORDERED: Montelukast 10 MG Tab PO PRN (22:47)
[2018-05-12] MEDS ORDERED: Non-Formulary Medication 1 Each (Triamcinolone Acetonide [Nasacort] 1 SPRAY) INH PRN (22:47)
[2018-05-12] MEDS ORDERED: valACYclovir 1,000 MG Tab PO PRN (22:47)
[2018-05-12] MEDS ORDERED: Non-Formulary Medication 1 Each (Lansoprazole [Prevacid] 15 MG) PO PRN (22:47)
[2018-05-12] MEDS ORDERED: Magnesium Hydroxide 400 MG/5 ML Susp 30 ML Cup PO PRN (22:47)
[2018-05-12] MEDS ORDERED: hydrALAZINE 20 MG/ML SDV IVPUSH PRN (23:03)
[2018-05-12] MEDS ORDERED: Metoprolol Tartrate 5 MG/5 ML SDV IVPUSH PRN (23:03)
[2018-05-12] MEDS ORDERED: LORazepam 2 MG/ML SDV IVPUSH PRN (23:03)
[2018-05-12] MEDS ORDERED: Promethazine 12.5 MG in Sodium Chloride 0.9% 50 ML IV PRN (23:04)
[2018-05-12] MEDS ORDERED: Ondansetron 4 MG/2 ML SDV IV PRN (23:04)
[2018-05-12] MEDS ORDERED: Acetaminophen/HYDROcodone 325-5 MG Tab PO PRN (23:04)
[2018-05-12] MEDS ORDERED: Acetaminophen 325 MG Tab PO PRN (23:04)
[2018-05-12] MEDS ORDERED: HYDROmorphone 0.5 MG/0.5 ML SYRINGE IVPUSH PRN (23:04)
[2018-05-12] MEDS ORDERED: Albuterol/Ipratropium 3.0-0.5 MG/3 ML Neb Soln NEB PRN (23:04)
[2018-05-12] MEDS ORDERED: Polyethylene Glycol 3350 Powder 17 GM Packet PO PRN (23:04)
[2018-05-12] MEDS ORDERED: Temazepam 7.5 MG Cap PO PRN (23:04)
--- NOTE | 2018-05-12 23:18 | PCM.HP ---
H&P History of Present Illness - General Date of Service: 05/12/18 Admit Problem/Dx: Admission Diagnosis/Problem Admission Diagnosis/Problem Elevated troponin level Source of Information: Patient, Provider, RN Notes Reviewed History Limitations: Reports: No Limitations - History of Present Illness Initial Comments - Free Text/Narative: This is a 68-year-old female who presents for evaluation and treatment of left lower leg swelling. She presented to the [facility] but stat U/S was unable to be performed and she was sent to ED to r/o blood clot. Patient reports that the swelling started yesterday. She is denying pain in her leg. Patient reports that she has had some substernal chest pain day before yesterday. She has also been feeling short of breath recently with most recently today. She attributes these symptoms to her anxiety. She denies any nausea, vomiting, diaphoresis, lightheadedness or syncope. Patient is not on any blood thinners. She takes 81 mg aspirin daily. Past surgical history of a left knee replacement January 2018. Patient reports that she recently was found to have an aortic aneurysm that is 4.5 cm. She is scheduled see Dr. Derick Lynn in about 3 months for follow-up for this. Patient denies any cardiac history. Patient is subsequently admitted for observation. She is a full code. PCP is KADEN Babin. - Related Data Allergies/Adverse Reactions: Allergies Allergy/AdvReac Type Severity Reaction Status Date / Time metronidazole [From Flagyl] AdvReac Nausea and Verified 05/12/18 14:52 Vomiting morphine AdvReac Nausea and Verified 05/12/18 14:52 Vomiting Home Medications: Home Meds ALPRAZolam [Xanax] 0.5 - 1 tab PO Q8H PRN 02/13/18 [History] Budesonide/Formoterol Fumarate [Symbicort 160-4.5 Mcg Inhaler] 1 puff INH BID [History] Ca Carbonate/Vitamin D3/Vit K [Calcium + D Soft Chewable Tab] 1 tab PO TID 02/13 [History] Cetirizine [ZyrTEC] 10 mg PO DAILY 02/13/18 [History] Lansoprazole [Prevacid] 15 mg PO DAILY PRN 02/13/18 [History] Levothyroxine 150 mcg PO DAILY 02/13/18 [History] Montelukast [Singulair] 10 mg PO DAILY PRN 02/13/18 [History] Triamcinolone Acetonide [Nasacort] 1 spray INH DAILY PRN 02/13/18 [History] Vitamin B Complex 1 cap PO DAILY 02/13/18 [History] valACYclovir HCl [Valacyclovir] 1,000 mg PO BID PRN 02/13/18 [History] Acetaminophen/oxyCODONE [Percocet 325-5 MG] 1 - 2 tab PO Q6H PRN #60 tablet [Rx] Bisacodyl [Dulcolax] 5 mg PO DAILY PRN tablet 02/15/18 [Rx] Cyclobenzaprine [Flexeril] 10 mg PO TID PRN #40 tablet 02/15/18 [Rx] Docusate Sodium [Colace] 100 mg PO BID cap 02/15/18 [Rx] Magnesium Hydroxide [Milk of Magnesia] 30 ml PO BID PRN cup 02/15/18 [Rx] Sennosides [Senna] 8.6 mg PO BID PRN tablet 02/15/18 [Rx] Past Medical History HEENT History: Reports: Allergic Rhinitis, Hard of Hearing, Sinusitis, Other ( See Below) Other HEENT History: nasal polyp, hearing loss, hypertorphy of nasal turbinates , tinnitis, wears glasses, has hearing aids Cardiovascular History: Reports: None Respiratory History: Reports: Asthma, SOB, Other (See Below) Other Respiratory History: wheezing Gastrointestinal History: Reports: Diverticulosis Genitourinary History: Reports: Other (See Below) Other Genitourinary History: acute cystitis FORECLOSURE PARALEGAL History: Reports: Other (See Below) Other OB/BYN History: herpes simplex, vulvovaginitis Musculoskeletal History: Reports: Other (See Below) Other Musculoskeletal History: left knee pain Neurological History: Reports: None Psychiatric History: Reports: Anxiety, Other (See Below) Other Psychiatric History: fatigue Endocrine/Metabolic History: Reports: Hypothyroidism, Obesity/BMI 30+ Hematologic History: Reports: None Immunologic History: Reports: None Oncologic (Cancer) History: Reports: None Dermatologic History: Reports: None - Infectious Disease History Infectious Disease History: Reports: Chicken Pox, Herpes, Measles, Mumps - Past Surgical History HEENT Surgical History: Reports: Adenoidectomy, Naso-Sinus Surgery, Tonsillectomy Cardiovascular Surgical History: Reports: None Respiratory Surgical History: Reports: None GI Surgical History: Reports: Appendectomy, Cholecystectomy, Colonoscopy Female Surgical History: Reports: Hysterectomy Male Surgical History: Reports: None Endocrine Surgical History: Reports: None Neurological Surgical History: Reports: None Musculoskeletal Surgical History: Reports: Other (See Below) Other Musculoskeletal Surgeries/Procedures:: bilateral bunionectomy Oncologic Surgical History: Reports: None Dermatological Surgical History: Reports: None Social & Family History - Family History Family Medical History: Noncontributory - Tobacco Use Smoking Status *Q: Former Smoker Years of Tobacco use: 20 Packs/Tins Daily: 1 Used Tobacco, but Quit: Yes Month/Year Tobacco Last Used: 11/1986 Second Hand Smoke Exposure: No - Caffeine Use Caffeine Use: Reports: None Other Caffeine Use: Decaf Caffeine Use Comment: small amounts of soda - Recreational Drug Use Recreational Drug Use: No H&P Review of Systems - Review of Systems: Review Of Systems: ROS reveals no pertinent complaints other than HPI. Exam - Exam Exam: See Below - Vital Signs Vital Signs: Last Vital Signs Temp 37.1 C 05/12/18 21:00 Pulse 66 05/12/18 20:28 Resp 18 05/12/18 20:28 BP 158/95 H 05/12/18 20:47 Pulse Ox 96 05/12/18 20:28 Weight: 107.048 kg - Exam General: Alert, Oriented, Cooperative, Other (Obese) HEENT: Conjunctiva Clear, EACs Clear, EOMI, Hearing Intact, Mucosa Moist & Switzer , Nares Patent, Normal Nasal Septum, Posterior Pharynx Clear, Pupils Equal, Pupils Reactive Neck: Supple, Trachea Midline, Full Range of Motion. No: JVD Lungs: Clear to Auscultation, Normal Respiratory Effort Cardiovascular: Regular Rate, Regular Rhythm, Systolic Murmur GI/Abdominal Exam: Normal Bowel Sounds, Soft, Non-Tender, No Organomegaly, No Abnormal Bruit (Female) Exam: Deferred Rectal (Female) Exam: Deferred Back Exam: Normal Inspection, Decreased Range of Motion Extremities: Normal Inspection, Normal Range of Motion, Non-Tender, No Pedal Edema, Normal Capillary Refill, Other (left knee: mildly swollen and warm to the touch) Peripheral Pulses: 2+: Dorsalis Pedis (L), Dorsalis Pedis (R) Skin: Warm, Dry, Intact Neuro Extensive - Mental Status: Oriented x3, Normal Cognition, Memory Intact Neuro Extensive - Motor, Sensory, Reflexes: CN II-XII Intact, Normal Gait Psychiatric: Alert, Normal Affect, Normal Mood - Patient Data Lab Results Last 24 hrs: Laboratory Results - last 24 hr 05/12/18 05/12/18 05/12/18 Range/Units 15:50 15:50 15:50 WBC 7.25 (3.98-10.04) K/mm3 RBC 4.95 (3.98-5.22) M/mm3 Hgb 13.8 (11.2-15.7) gm/L Hct 43.4 (34.1-44.9) % MCV 87.7 (79.4-94.8) fl MCH 27.9 (25.6-32.2) pg MCHC 31.8 L (32.2-35.5) g/dl RDW Std Deviation 47.6 H (36.4-46.3) fL Plt Count 256 (182-369) K/mm3 MPV 9.9 (9.4-12.3) fl Neut % (Auto) 48.9 (34.0-71.1) % Lymph % (Auto) 30.9 (19.3-51.7) % [place] % (Auto) 14.1 H (4.7-12.5) % Eos % (Auto) 5.7 (0.7-5.8) Baso % (Auto) 0.3 (0.1-1.2) % Neut # (Auto) 3.55 (1.56-6.13) K/mm3 Lymph # (Auto) 2.24 (1.18-3.74) K/mm3 [place] # (Auto) 1.02 H (0.24-0.36) K/mm3 Eos # (Auto) 0.41 H (0.04-0.36) K/mm3 Baso # (Auto) 0.02 (0.01-0.08) K/mm3 PT 10.2 (9.5-12.1) SECONDS INR 0.93 APTT 25 (24-31) SECONDS D-Dimer, Quantitative (0.19-0.50) mg/L Sodium 142 (136-145) mEq/L Potassium 3.7 (3.5-5.1) mEq/L Chloride 106 (98-107) mEq/L Carbon Dioxide 31 (21-32) mEq/L Anion Gap 8.7 (5-15) BUN 19 H (7-18) mg/dL Creatinine 0.9 (0.55-1.02) mg/dL Est Cr Clr Drug Dosing 61.65 mL/min Estimated GFR (MDRD) > 60 (>60) mL/min BUN/Creatinine Ratio 21.1 H (14-18) Glucose 98 (80-115) mg/dL Calcium 8.3 L (8.5-10.1) mg/dL Total Bilirubin 0.4 (0.2-1.0) mg/dL AST 20 (15-37) U/L ALT 33 (14-59) U/L Alkaline Phosphatase 86 (46-116) U/L CK-MB (CK-2) (0-3.6) ng/ml Troponin I 0.068 H* (0.00-0.056) ng/mL NT-Pro-B Natriuret Pep (0-125) pg/mL Total Protein 6.7 (6.4-8.2) g/dl Albumin 3.5 (3.4-5.0) g/dl Globulin 3.2 gm/dL Albumin/Globulin Ratio 1.1 (1-2) 05/12/18 05/12/18 05/12/18 Range/Units 15:50 15:50 17:27 WBC (3.98-10.04) K/mm3 RBC (3.98-5.22) M/mm3 Hgb (11.2-15.7) gm/L Hct (34.1-44.9) % MCV (79.4-94.8) fl MCH (25.6-32.2) pg MCHC (32.2-35.5) g/dl RDW Std Deviation (36.4-46.3) fL Plt Count (182-369) K/mm3 MPV (9.4-12.3) fl Neut % (Auto) (34.0-71.1) % Lymph % (Auto) (19.3-51.7) % Bur[place] % (Auto) (4.7-12.5) % Eos % (Auto) (0.7-5.8) Baso % (Auto) (0.1-1.2) % Neut # (Auto) (1.56-6.13) K/mm3 Lymph # (Auto) (1.18-3.74) K/mm3 Burleigh # (Auto) (0.24-0.36) K/mm3 Eos # (Auto) (0.04-0.36) K/mm3 Baso # (Auto) (0.01-0.08) K/mm3 PT (9.5-12.1) SECONDS INR APTT (24-31) SECONDS D-Dimer, Quantitative 1.51 H (0.19-0.50) mg/L Sodium (136-145) mEq/L Potassium (3.5-5.1) mEq/L Chloride (98-107) mEq/L Carbon Dioxide (21-32) mEq/L Anion Gap (5-15) BUN (7-18) mg/dL Creatinine (0.55-1.02) mg/dL Est Cr Clr Drug Dosing mL/min Estimated GFR (MDRD) (>60) mL/min BUN/Creatinine Ratio (14-18) Glucose (80-115) mg/dL Calcium (8.5-10.1) mg/dL Total Bilirubin (0.2-1.0) mg/dL AST (15-37) U/L ALT (14-59) U/L Alkaline Phosphatase (46-116) U/L CK-MB (CK-2) < 0.5 (0-3.6) ng/ml Troponin I (0.00-0.056) ng/mL NT-Pro-B Natriuret Pep 93 (0-125) pg/mL Total Protein (6.4-8.2) g/dl Albumin (3.4-5.0) g/dl Globulin gm/dL Albumin/Globulin Ratio (1-2) 05/12/18 Range/Units 18:10 WBC (3.98-10.04) K/mm3 RBC (3.98-5.22) M/mm3 Hgb (11.2-15.7) gm/L Hct (34.1-44.9) % MCV (79.4-94.8) fl MCH (25.6-32.2) pg MCHC (32.2-35.5) g/dl RDW Std Deviation (36.4-46.3) fL Plt Count (182-369) K/mm3 MPV (9.4-12.3) fl Neut % (Auto) (34.0-71.1) % Lymph % (Auto) (19.3-51.7) % [place] % (Auto) (4.7-12.5) % Eos % (Auto) (0.7-5.8) Baso % (Auto) (0.1-1.2) % Neut # (Auto) (1.56-6.13) K/mm3 Lymph # (Auto) (1.18-3.74) K/mm3 [place] # (Auto) (0.24-0.36) K/mm3 Eos # (Auto) (0.04-0.36) K/mm3 Baso # (Auto) (0.01-0.08) K/mm3 PT (9.5-12.1) SECONDS INR APTT (24-31) SECONDS D-Dimer, Quantitative (0.19-0.50) mg/L Sodium (136-145) mEq/L Potassium (3.5-5.1) mEq/L Chloride (98-107) mEq/L Carbon Dioxide (21-32) mEq/L Anion Gap (5-15) BUN (7-18) mg/dL Creatinine (0.55-1.02) mg/dL Est Cr Clr Drug Dosing mL/min Estimated GFR (MDRD) (>60) mL/min BUN/Creatinine Ratio (14-18) Glucose (80-115) mg/dL Calcium (8.5-10.1) mg/dL Total Bilirubin (0.2-1.0) mg/dL AST (15-37) U/L ALT (14-59) U/L Alkaline Phosphatase (46-116) U/L CK-MB (CK-2) (0-3.6) ng/ml Troponin I 0.076 H* (0.00-0.056) ng/mL NT-Pro-B Natriuret Pep (0-125) pg/mL Total Protein (6.4-8.2) g/dl Albumin (3.4-5.0) g/dl Globulin gm/dL Albumin/Globulin Ratio (1-2) Result Diagrams: 05/13/18 06:25 05/13/18 06:25 Problem List Initiated/Reviewed/Updated: Yes Orders Last 24hrs: Active Orders 24 hr Category Date Time Status Patient Status [ADT] Routine ADT 05/12/18 20:04 Active Cardiac Monitoring [RC] . DIRECTED Care 05/12/18 18:18 Active Cardiac Monitoring [RC] CONTINUOUS Care 05/12/18 23:05 Active EKG 12 Lead [EKG Documentation Completion] [RC] AM Care 05/13/18 07:00 Active EKG 12 Lead [EKG Documentation Completion] [RC] STAT Care 05/12/18 15:35 Active Height and Weight [RC] DAILY Care 05/12/18 23:04 Active Intake and Output [RC] QSHIFT Care 05/12/18 23:05 Active Oxygen Therapy [RC] PRN Care 05/12/18 23:04 Active RT Aerosol Therapy [RC] ASDIRECTED Care 05/12/18 23:06 Active Up With Assistance [RC] ASDIRECTED Care 05/12/18 23:04 Active Up ad Anisha [RC] ASDIRECTED Care 05/12/18 23:04 Active VTE/DVT Education [RC] PER UNIT ROUTINE Care 05/12/18 23:04 Active Vital Signs [RC] Q4H Care 05/12/18 23:04 Active Consult to Case Management [CONS] Routine Cons 05/12/18 23:04 Active Consult to Pulmonary Rehabilitation [CONS] Routine Cons 05/12/18 23:13 Active Consult to Product Safety And Standards Engineer [CONS] Routine Cons 05/12/18 23:04 Active Consult to Spiritual Care [CONS] Routine Cons 05/12/18 23:04 Active Heart Healthy Diet [DIET] Diet 05/12/18 Dinner Active Nothing Per Oral Diet [DIET] Diet 05/12/18 Breakfast Active Chest 1V Frontal [CR] Stat Exams 05/12/18 15:35 Taken BASIC METABOLIC PANEL,BMP [CHEM] AM Lab 05/13/18 05:11 Ordered BASIC METABOLIC PANEL,BMP [CHEM] AM Lab 05/14/18 05:11 Ordered CBC WITH AUTO DIFF [HEME] AM Lab 05/13/18 05:11 Ordered LIPID PANEL [CHEM] AM Lab 05/13/18 05:11 Ordered MAGNESIUM [CHEM] AM Lab 05/13/18 05:11 Ordered MAGNESIUM [CHEM] AM Lab 05/14/18 05:11 Ordered T4 FREE [CHEM] AM Lab 05/13/18 05:11 Ordered TSH [CHEM] AM Lab 05/13/18 05:11 Ordered ALPRAZolam [Xanax] Med 05/12/18 22:47 Pending DOSE mg PO Q8H PRN Acetaminophen [Tylenol] Med 05/12/18 23:04 Active 650 mg PO Q4H PRN Acetaminophen/HYDROcodone [[place]au[place] 325-5 MG] Med 05/12/18 23:04 Active 1 tab PO Q4H PRN Albuterol/Ipratropium [DuoNeb 3.0-0.5 MG/3 ML] Med 05/12/18 23:04 Active 3 ml NEB Q4H PRN Bisacodyl [Dulcolax] Med 05/12/18 22:47 Pending 5 mg PO DAILY PRN Budesonide/Formoterol Fumarate [Symbicort 160-4.5 Mcg Med 05/13/18 09:00 Ordered Inhaler] 1 puff INH BID Ca Carbonate/Vitamin D3/Vit K [Calcium + D Soft Med 05/13/18 09:00 Ordered Chewable Tab] 1 tab PO TID Cetirizine Med 05/13/18 09:00 Ordered 10 mg PO DAILY Cyclobenzaprine [Flexeril] Med 05/12/18 22:47 Ordered 10 mg PO TID PRN Docusate Sodium [Colace] Med 05/13/18 09:00 Ordered 100 mg PO BID Docusate Sodium/Sennosides [Senna Plus] Med 05/12/18 23:04 Active 1 tab PO BID PRN HYDROmorphone [Dilaudid] Med 05/12/18 23:04 Active 0.25 mg IVPUSH Q2H PRN LORazepam [Ativan] Med 05/12/18 23:03 Active 2 mg IVPUSH Q4H PRN Lansoprazole [Prevacid] Med 05/12/18 22:47 Ordered 15 mg PO DAILY PRN Levothyroxine Med 05/13/18 09:00 Ordered 150 mcg PO DAILY Magnesium Hydroxide [Milk of Magnesia] Med 05/12/18 22:47 Ordered 30 ml PO BID PRN Magnesium Rep Pharmacy to Dose [Pharmacy to Dose - Med 05/12/18 23:15 Pending Magnesium Replacement] 1 dose .XX ASDIRECTED Metoprolol Tartrate [Lopressor] Med 05/12/18 23:03 Active 5 mg IVPUSH Q4H PRN Montelukast [Singulair] Med 05/12/18 22:47 Ordered 10 mg PO DAILY PRN Ondansetron [Zofran] Med 05/12/18 23:04 Active 4 mg IV Q6H PRN Polyethylene Glycol 3350 [MiraLAX] Med 05/12/18 23:04 Active 17 gm PO DAILY PRN Potassium Chloride [Klor-Con M20] Med 05/12/18 23:30 Active 40 meq PO Q4H Potassium Rep Pharmacy to Dose [Pharmacy to Dose - Med 05/12/18 23:15 Pending Potassium Replacement] 1 dose .XX ASDIRECTED Promethazine [Phenergan] 12.5 mg Med 05/12/18 23:04 Active Sodium Chloride 0.9% [Normal Saline] 50 ml IV Q6H Sennosides [Senna] Med 05/12/18 22:47 Ordered 8.6 mg PO BID PRN Sodium Chloride 0.9% [Normal Saline] 100 ml Med 05/12/18 16:45 Active IV ASDIRECTED Sodium Chloride 0.9% [Saline Flush] Med 05/12/18 16:37 Active 10 ml FLUSH ONETIME PRN Temazepam [Restoril] Med 05/12/18 23:04 Active 7.5 mg PO BEDTIME PRN Triamcinolone Acetonide [Nasacort] Med 05/12/18 22:47 Ordered 1 spray INH DAILY PRN Vitamin B Complex Med 05/13/18 09:00 Ordered 1 cap PO DAILY hydrALAZINE [Apresoline] Med 05/12/18 23:03 Active 20 mg IVPUSH Q4H PRN valACYclovir [Valtrex] Med 05/12/18 22:47 Ordered 1,000 mg PO BID PRN Resuscitation Status Routine Resus Stat 05/12/18 23:04 Ordered Lexiscan [EKG Stress NM Adenosine] [EK] Routine Ther 05/13/18 07:00 Ordered Medication Orders Acetaminophen (Tylenol) 650 mg PO Q4H PRN PRN Reason: Pain (Mild 1-3)/fever Hydrocodone Bitart/Acetaminophen ([place] 325-5 Mg) 1 tab PO Q4H PRN PRN Reason: Pain (moderate 4-6) Albuterol/Ipratropium (Duoneb 3.0-0.5 Mg/3 Ml) 3 ml NEB Q4H PRN PRN Reason: Shortness Of Breath/wheezing Alprazolam (Xanax) mg PO Q8H PRN PRN Reason: Anxiety Bisacodyl (Dulcolax) 5 mg PO DAILY PRN PRN Reason: Constipation Cyclobenzaprine HCl (Flexeril) 10 mg PO TID PRN PRN Reason: Spasms Docusate Sodium (Colace) 100 mg PO BID [facility] Hydralazine HCl (Apresoline) 20 mg IVPUSH Q4H PRN PRN Reason: Hypertension Hydromorphone HCl (Dilaudid) 0.25 mg IVPUSH Q2H PRN PRN Reason: Pain (severe 7-10) Sodium Chloride (Normal Saline) 100 mls @ 65 mls/hr IV ASDIRECTED [facility] Last Admin: 05/12/18 16:58 Dose: 65 mls/hr Promethazine HCl 12.5 mg/ (Sodium Chloride) 50.5 mls @ 100 mls/hr IV Q6H PRN PRN Reason: Nausea/Vomiting Levothyroxine Sodium (Levothyroxine) 150 mcg PO DAILY [facility] Lorazepam (Ativan) 2 mg IVPUSH Q4H PRN PRN Reason: Seizures Magnesium Hydroxide (Milk Of Magnesia) 30 ml PO BID PRN PRN Reason: Constipation Magnesium Sulfate (Pharmacy To Dose - Magnesium Replacement) 1 dose .XX ASDIRECTED [facility] Metoprolol Tartrate (Lopressor) 5 mg IVPUSH Q4H PRN PRN Reason: Tachycardia Montelukast Sodium (Singulair) 10 mg PO DAILY PRN PRN Reason: Allergies Non-Formulary Medication (Budesonide/Formoterol Fumarate [Symbicort 160-4.5 Mcg Inhaler]) 1 puff INH BID [facility] Non-Formulary Medication (Ca Carbonate/Vitamin D3/Vit K [Calcium + D Soft Chewable Tab]) 1 tab PO TID [facility] Non-Formulary Medication (Cetirizine) 10 mg PO DAILY [facility] Non-Formulary Medication (Lansoprazole [Prevacid]) 15 mg PO DAILY PRN PRN Reason: Heartburn Non-Formulary Medication (Triamcinolone Acetonide [Nasacort]) 1 spray INH DAILY PRN PRN Reason: Allergies Non-Formulary Medication (Vitamin B Complex) 1 cap PO DAILY [facility] Ondansetron HCl (Zofran) 4 mg IV Q6H PRN PRN Reason: Nausea/Vomiting Polyethylene Glycol (Miralax) 17 gm PO DAILY PRN PRN Reason: Constipation Potassium Chloride (Pharmacy To Dose - Potassium Replacement) 1 dose .XX ASDIRECTED [facility] Potassium Chloride (Klor-Con M20) 40 meq PO Q4H [facility] Stop: 05/13/18 03:31 Senna (Senna) 8.6 mg PO BID PRN PRN Reason: Constipation Senna/Docusate Sodium (Senna Plus) 1 tab PO BID PRN PRN Reason: Constipation Sodium Chloride (Saline Flush) 10 ml FLUSH ONETIME PRN PRN Reason: IV FLUSH Last Admin: 05/12/18 16:58 Dose: 10 ml Temazepam (Restoril) 7.5 mg PO BEDTIME PRN PRN Reason: Sleep Valacyclovir HCl (Valtrex) 1,000 mg PO BID PRN PRN Reason: cold sores Assessment/Plan Comment:: Assessment/Plan: Acute: CP r/o ACS - Substernal in in location a couple of days ago - More short of breath today; felt maybe related to anxiety - No cardiac hx/o - BEN/Heart Score: 3-4 and 4 respectively - Troponin x2 in ED: 0.068 and 0.076 - CKMB x1 : <0.5 - EKG shows NSR with rate of 65. No Acute ST-T wave changes - Lipid Panel in AM - Additional CE and stress test (Lexiscan-Obesity and Leg Edema) in AM - DDx: Neuro-circulatory Asthenia; Anxiety/Panic Attack Induced Chest Pain Elevated D-Dimer - D-Dimer 1.51 - Wells Score is low risk - Chest CTA and Duplex U/S both negative for DVT/PE Left Lower Extremity Edema - Carries a hx/o left knee surgery January 2018 - Symptom started yesterday w/o pain - Josefina sign negative - PT/OT eval - Follow-up Ortho- Dr. Majano; will speak to them if they can see her inpatient Panic Attack/Poorly Controlled Anxiety - On Xanax 0.5-1 mg p Q8 PRN - She may need a short acting benzo - Consider Tele-psych consult Chronic: Impaired Hearing AR/Sinusitis Asthma/SOB Anxiety Compression Deformity Mid-Thoracic Spine Atherosclerotic Disease on Aorta Abdominal Aortic Aneurysm Fatigue Knee Pain Hypothyroidism Obesity with BMI of 34.9 Plan: Admit to the floor Resume Home Meds Routine AM Labs Lipid and Thyroid Panel in AM Serial EKG as indicated ACS work up: Serial CE and Stress Test Dietary Consult SW/CM for d/c planning Code status: 1
[2018-05-12] MEDS ORDERED: Pantoprazole 40 MG Tab.CR PO PRN (23:24)
[2018-05-12] MEDS: Potassium Chloride 20 MEQ Tab.ER PO SCH (23:30)
[2018-05-13] MEDS: Potassium Chloride 20 MEQ Tab.ER PO SCH (04:44)
[2018-05-13] MEDS ORDERED: Levothyroxine 150 MCG Tab PO SCH (06:00)
[2018-05-13] MEDS ORDERED: Formoterol/Mometasone 200-5 MCG 8.8 GM Inhaler IH SCH (06:00)
[2018-05-13] MEDS: Calcium Carbonate/Vitamin D3 600 MG-200 Units Tab PO SCH ×2 (06:47→11:14)
--- NOTE | 2018-05-13 07:32 | CR ---
Chest: Portable view of the chest was obtained. Comparison: No prior chest x-ray. Heart size is normal. Tortuous thoracic aorta is seen. Lungs are clear. Old left-sided rib fractures are noted as well as old left clavicle fracture. Mild scoliosis is present. Surgical clips are seen within the upper right abdomen. Impression: 1. Incidental findings. Nothing acute is seen on portable chest x-ray. Diagnostic code #2
[2018-05-13] MEDS ORDERED: Non-Formulary Medication 1 Each (Budesonide/Formoterol Fumarate [Symbicort 160-4.5 Mcg Inh INH SCH (09:00)
[2018-05-13] MEDS ORDERED: Enoxaparin 40 MG/0.4 ML Syringe SUBCUT SCH (09:00)
[2018-05-13] MEDS ORDERED: Non-Formulary Medication 1 Each (Cetirizine 10 MG) PO SCH (09:00)
[2018-05-13] MEDS ORDERED: Loratadine 10 MG Tab PO SCH (09:00)
[2018-05-13] MEDS ORDERED: Vitamin B Complex With Vitamin C Cap PO SCH (09:00)
[2018-05-13] MEDS ORDERED: Docusate Sodium 100 MG Cap PO SCH (09:00)
--- NOTE | 2018-05-13 09:56 | PCM.PRNOTE ---
- Free Text/Narrative Note: Date of service: 05/13/18 Procedure: Exercise treadmill stress test Ordering provider: Dr. Mariusz Jacome Indication: CP R/O ACS, Positive troponin Baseline EKG: Sinus rhythm at 71 bpm with T-wave inversion in lead V1 The patient exercised on a standard Guzman protocol for 7 minutes and 51 seconds achieving a maximal heart rate of 146 bpm (97% of the maximal predicted heart rate.) 8.8 METs. Blood pressure at peak stress was 178/[place] [address]. Test terminated due to: Fatigue EKG changes of ischemia during stress or in recovery: None Symptoms: Shortness of breath rapidly relieved with rest after completion of test Arrhythmias: Occasional rare PAC Impression: 1. Negative exercise treadmill ECG for ischemia. 2. Normal blood pressure response to stress. 3. Good exercise tolerance. 4. Nuclear images pending and will be reported separately per Radiologist.
--- NOTE | 2018-05-13 13:13 | NM ---
Cardiolite cardiac exam Technique: I have data stating the patient was stressed utilizing treadmill protocol. Patient reached 133 bpm which is above the patient's 85% maximum predicted heart rate 128 bpm. Stress dose of technetium 99m Cardiolite was 11.3 mCi. Rest dose was 30.7 mCi. SPECT imaging was obtained in 3 planes for both portions of the study. Study was also gated. Low-dose chest CT performed to allow for attenuation correction. Findings: Activity within the left ventricular myocardium is homogeneous between rest and stress study. No fixed or reversible type change is seen. Ejection fraction is 66% which is normal. Normal wall thickening and wall motion is seen. Impression: 1. No abnormality is identified on Cardiolite portion of cardiac stress test. Diagnostic code #1
--- NOTE | 2018-05-13 15:24 | PCM.DCSUM1 ---
<Corie Scales - Last Filed: 05/13/18 16:05> Discharge Summary - Hospital Course HPI Initial Comments: This is a 68-year-old female who presents for evaluation and treatment of left lower leg swelling. She presented to the [facility] but stat U/S was unable to be performed and she was sent to ED to r/o blood clot. Patient reports that the swelling started yesterday. She is denying pain in her leg. Patient reports that she has had some substernal chest pain day before yesterday. She has also been feeling short of breath recently with most recently today. She attributes these symptoms to her anxiety. She denies any nausea, vomiting, diaphoresis, lightheadedness or syncope. Patient is not on any blood thinners. She takes 81 mg aspirin daily. Past surgical history of a left knee replacement January 2018. Patient reports that she recently was found to have an aortic aneurysm that is 4.5 cm. She is scheduled see Dr. Derick Lynn in about 3 months for follow-up for this. Patient denies any cardiac history. Patient is subsequently admitted for observation. She is a full code. PCP is KADEN Babin. Diagnosis: Stroke: No Modified Desirae Scale: No Symptoms at All Modified Desirae Scale Score: 0 - Discharge Data Discharge Date: 05/13/18 Discharge Disposition: Home, Self-Care 01 Condition: Good - Patient Summary/Data Operative Procedure(s) Performed: None Complications: None Consults: Consultations 05/12/18 23:04 Consult to Case Management [CONS] Routine Consult to Corporate Planning Manager [CONS] Routine Consult to Spiritual Care [CONS] Routine 05/12/18 23:13 Consult to Pulmonary Rehabilitation [CONS] Routine 05/13/18 12:10 Consult to Physician [CONS] Routine Labs Pending at D/C: None Recommended Follow-up Testing/Procedures: None Planned Operative Procedure(s) after DC: None Hospital Course: Assessment/Plan: Acute: CP r/o ACS - Substernal in in location a couple of days ago -She reports a history of recent cracked rib - More short of breath today; felt maybe related to anxiety - No cardiac hx - BEN/Heart Score: 3-4 and 4 respectively - Troponin x2 in ED: 0.068 and 0.076 - Serial CKMB normal - EKG shows NSR with rate of [address]-T wave changes - Lipid Panel: Total chol 160, LDL 100, HDL 50 - TSH 5.158 - BNP 83 - Additional CE and stress test --> patient tolerated stress test well and Cardiolite portion read as no abnormality - DDx: Neuro-circulatory Asthenia; Anxiety/Panic Attack Induced Chest Pain, GERD Elevated D-Dimer - D-Dimer 1.51 - Wells Score is low risk - Chest CTA and Duplex U/S both negative for DVT/PE Left Lower Extremity Edema - Carries a hx/o left knee surgery January 2018 - Symptom started yesterday w/o pain --> Patient reports today that she had a recent increase in activity; this is likely the source of her swelling - Josefina sign negative - Duplex U/S negative for DVT - Follow-up with Ortho Panic Attack/Poorly Controlled Anxiety, improved - On Xanax 0.5-1 mg p Q8 PRN - She may need a short acting benzo with PCP to consider Chronic: Impaired Hearing AR/Sinusitis Asthma/SOB Anxiety Compression Deformity Mid-Thoracic Spine Atherosclerotic Disease on Aorta Abdominal Aortic Aneurysm --> recent diagnosis, she is going to see Dr. Mckay ( vascular surgeon) in [place] Fatigue Knee Pain Hypothyroidism GERD Obesity with BMI of 34.9 Plan: Admit for observation Resume Home Meds Routine AM Labs Serial EKG as indicated ACS work up: Serial CE and Stress Test SW/CM for d/c planning Code status: 1 Hospital Course: Libertad was admitted for chest pain and left lower extremity swelling. She improved during her stay. Her work-up in ED included CBC that was essentially unremarkable. CMP remarkable for BUN 19, Ca 8.3. D-dimer was elevated at 1.51. CXR in ED read as nothing acute. CTA of chest ordered in ED read as no pulmonary emobolism. EKG showed NSR with rate of [address]-T wave changes. Work-up during admission included stress test and Duplex U/S. Patient tolerated stress test well and Cardiolite portion read as no abnormality. Duplex U/S was negative for DVT. Lipid panel ordered and results were Total 160 , LDL 100, HDL 50. TSH was ordered and very mildly elevated at 5.158. Per PCP records, patient's thyroid medication has recently been adjusted. BNP ordered and was normal at 83. Serial cardiac enzymes ordered. Troponin with very mild elevations/fluctuations. CK-MB was not elevated. Patient reported hx of GERD and did appear to be experiencing episodes of burping during this insurance underwriter sales's interview with patient. Patient may be appropriate for further GI work-up if symptoms were to persist or worsen. Recommend patient follow-up with Ortho following discharge. Recommend patient follow-up with PCP in 1-2 weeks. Patient did not have any new medications or medication changes during admission. Patient is stable and ready for discharge. Patient is agreeable to this plan. - Patient Instructions Diet: Heart Healthy Diet, Usual Diet as Tolerated, Weight Loss Diet Activity: As Tolerated Driving: Do Not Drive Showering/Bathing: May Shower Notify Provider of: Fever, Increased Pain, Swelling and Redness, Nausea and/or Vomiting Other/Special Instructions: - Please resume all home medications and continue routine home activities as tolerated. - Call or follow up with your PCP for any questions or concerns after discharge. - Follow up with your PCP in 1-2 weeks. - Come back or seek immediate care should your symptoms persist or get worse - Discharge Plan *PRESCRIPTION DRUG MONITORING PROGRAM REVIEWED*: Not Applicable *COPY OF PRESCRIPTION DRUG MONITORING REPORT IN PATIENT BIENVENIDO: Not Applicable Home Medications: Home Meds ALPRAZolam [Xanax] 0.5 - 1 tab PO Q8H PRN 02/13/18 [History] Budesonide/Formoterol Fumarate [Symbicort 160-4.5 Mcg Inhaler] 1 puff INH BID [History] Ca Carbonate/Vitamin D3/Vit K [Calcium + D Soft Chewable Tab] 1 tab PO TID 02/13 [History] Cetirizine [ZyrTEC] 10 mg PO DAILY 02/13/18 [History] Lansoprazole [Prevacid] 15 mg PO DAILY PRN 02/13/18 [History] Levothyroxine 150 mcg PO DAILY 02/13/18 [History] Montelukast [Singulair] 10 mg PO DAILY PRN 02/13/18 [History] Triamcinolone Acetonide [Nasacort] 1 spray INH DAILY PRN 02/13/18 [History] Vitamin B Complex 1 cap PO DAILY 02/13/18 [History] valACYclovir HCl [Valacyclovir] 1,000 mg PO BID PRN 02/13/18 [History] Acetaminophen/oxyCODONE [Percocet 325-5 MG] 1 - 2 tab PO Q6H PRN #60 tablet [Rx] Bisacodyl [Dulcolax] 5 mg PO DAILY PRN tablet 02/15/18 [Rx] Cyclobenzaprine [Flexeril] 10 mg PO TID PRN #40 tablet 02/15/18 [Rx] Docusate Sodium [Colace] 100 mg PO BID cap 02/15/18 [Rx] Magnesium Hydroxide [Milk of Magnesia] 30 ml PO BID PRN cup 02/15/18 [Rx] Sennosides [Senna] 8.6 mg PO BID PRN tablet 02/15/18 [Rx] Patient Handouts: Exercise Stress Test, [id number], Living With Anxiety Referrals: Norma Kessler, [facility] [Primary Care Provider] - (Your primary care doctor, Dr. Kessler, will call you to schedule a post-hospital follow-up appointment. If you do not receive a call, please call and schedule your own appointment with 7 to 10 days after discharge. ) - Discharge Summary/Plan Comment DC Time >30 min.: Yes (45) - General Info Date of Service: 05/13/18 Admission Dx/Problem (Free Text: Admission Diagnosis/Problem Admission Diagnosis/Problem Elevated troponin level Subjective Update: In to see Libertda. She is resting comfortably in bed. She reports she has had no further episodes of chest pain. She states that her knee swelling also appears better. She is ready for discharge today. Nursing has no concerns. Functional Status: Reports: Pain Controlled, Tolerating Diet, Ambulating, Urinating - Review of Systems General: Reports: No Symptoms. Denies: Fever, Chills HEENT: Reports: No Symptoms Pulmonary: Reports: No Symptoms. Denies: Shortness of Breath, Cough Cardiovascular: Reports: No Symptoms. Denies: Chest Pain, Palpitations, Edema Gastrointestinal: Reports: No Symptoms. Denies: Abdominal Pain, Constipation, Diarrhea, Nausea, Vomiting Genitourinary: Reports: No Symptoms. Denies: Dysuria, Frequency, Burning Musculoskeletal: Reports: No Symptoms Skin: Reports: No Symptoms Neurological: Reports: No Symptoms. Denies: Confusion, Dizziness, Headache, Numbness, Paresthesia Psychiatric: Reports: No Symptoms. Denies: Confusion, Depression, Anxiety - Patient Data Vitals - Most Recent: Last Vital Signs Temp 99.0 F 05/13/18 13:06 Pulse 73 05/13/18 13:06 Resp 16 05/13/18 13:06 BP 137/89 05/13/18 13:06 Pulse Ox 92 L 05/13/18 13:06 Weight - Most Recent: 107.048 kg I&O - Last 24 hours: Intake & Output 05/13/18 05/13/18 05/13/18 06:59 14:59 22:59 Intake Total 0 Balance 0 Lab Results - Last 24 hrs: Laboratory Results - last 24 hr 05/12/18 05/12/18 05/12/18 Range/Units 15:50 15:50 15:50 WBC 7.25 (3.98-10.04) K/mm3 RBC 4.95 (3.98-5.22) M/mm3 Hgb 13.8 (11.2-15.7) gm/L Hct 43.4 (34.1-44.9) % MCV 87.7 (79.4-94.8) fl MCH 27.9 (25.6-32.2) pg MCHC 31.8 L (32.2-35.5) g/dl RDW Std Deviation 47.6 H (36.4-46.3) fL Plt Count 256 (182-369) K/mm3 MPV 9.9 (9.4-12.3) fl Neut % (Auto) 48.9 (34.0-71.1) % Lymph % (Auto) 30.9 (19.3-51.7) % [place] % (Auto) 14.1 H (4.7-12.5) % Eos % (Auto) 5.7 (0.7-5.8) Baso % (Auto) 0.3 (0.1-1.2) % Neut # (Auto) 3.55 (1.56-6.13) K/mm3 Lymph # (Auto) 2.24 (1.18-3.74) K/mm3 [place] # (Auto) 1.02 H (0.24-0.36) K/mm3 Eos # (Auto) 0.41 H (0.04-0.36) K/mm3 Baso # (Auto) 0.02 (0.01-0.08) K/mm3 PT 10.2 (9.5-12.1) SECONDS INR 0.93 APTT 25 (24-31) SECONDS D-Dimer, Quantitative (0.19-0.50) mg/L Sodium 142 (136-145) mEq/L Potassium 3.7 (3.5-5.1) mEq/L Chloride 106 (98-107) mEq/L Carbon Dioxide 31 (21-32) mEq/L Anion Gap 8.7 (5-15) BUN 19 H (7-18) mg/dL Creatinine 0.9 (0.55-1.02) mg/dL Est Cr Clr Drug Dosing 61.65 mL/min Estimated GFR (MDRD) > 60 (>60) mL/min BUN/Creatinine Ratio 21.1 H (14-18) Glucose 98 (80-115) mg/dL Calcium 8.3 L (8.5-10.1) mg/dL Magnesium (1.8-2.4) mg/dl Total Bilirubin 0.4 (0.2-1.0) mg/dL AST 20 (15-37) U/L ALT 33 (14-59) U/L Alkaline Phosphatase 86 (46-116) U/L CK-MB (CK-2) (0-3.6) ng/ml Troponin I 0.068 H* (0.00-0.056) ng/mL NT-Pro-B Natriuret Pep (0-125) pg/mL Total Protein 6.7 (6.4-8.2) g/dl Albumin 3.5 (3.4-5.0) g/dl Globulin 3.2 gm/dL Albumin/Globulin Ratio 1.1 (1-2) Triglycerides (<150) mg/dL Cholesterol (<200) mg/dL LDL Cholesterol Direct (<100) mg/dL HDL Cholesterol (40-59) mg/dL Free T4 (0.76-1.46) ng/dL TSH 3rd Generation (0.358-3.74) uIU/mL 05/12/18 05/12/18 05/12/18 Range/Units 15:50 15:50 17:27 WBC (3.98-10.04) K/mm3 RBC (3.98-5.22) M/mm3 Hgb (11.2-15.7) gm/L Hct (34.1-44.9) % MCV (79.4-94.8) fl MCH (25.6-32.2) pg MCHC (32.2-35.5) g/dl RDW Std Deviation (36.4-46.3) fL Plt Count (182-369) K/mm3 MPV (9.4-12.3) fl Neut % (Auto) (34.0-71.1) % Lymph % (Auto) (19.3-51.7) % [place] % (Auto) (4.7-12.5) % Eos % (Auto) (0.7-5.8) Baso % (Auto) (0.1-1.2) % Neut # (Auto) (1.56-6.13) K/mm3 Lymph # (Auto) (1.18-3.74) K/mm3 [place] # (Auto) (0.24-0.36) K/mm3 Eos # (Auto) (0.04-0.36) K/mm3 Baso # (Auto) (0.01-0.08) K/mm3 PT (9.5-12.1) SECONDS INR APTT (24-31) SECONDS D-Dimer, Quantitative 1.51 H (0.19-0.50) mg/L Sodium (136-145) mEq/L Potassium (3.5-5.1) mEq/L Chloride (98-107) mEq/L Carbon Dioxide (21-32) mEq/L Anion Gap (5-15) BUN (7-18) mg/dL Creatinine (0.55-1.02) mg/dL Est Cr Clr Drug Dosing mL/min Estimated GFR (MDRD) (>60) mL/min BUN/Creatinine Ratio (14-18) Glucose (80-115) mg/dL Calcium (8.5-10.1) mg/dL Magnesium (1.8-2.4) mg/dl Total Bilirubin (0.2-1.0) mg/dL AST (15-37) U/L ALT (14-59) U/L Alkaline Phosphatase (46-116) U/L CK-MB (CK-2) < 0.5 (0-3.6) ng/ml Troponin I (0.00-0.056) ng/mL NT-Pro-B Natriuret Pep 93 (0-125) pg/mL Total Protein (6.4-8.2) g/dl Albumin (3.4-5.0) g/dl Globulin gm/dL Albumin/Globulin Ratio (1-2) Triglycerides (<150) mg/dL Cholesterol (<200) mg/dL LDL Cholesterol Direct (<100) mg/dL HDL Cholesterol (40-59) mg/dL Free T4 (0.76-1.46) ng/dL TSH 3rd Generation (0.358-3.74) uIU/mL 05/12/18 05/13/18 05/13/18 Range/Units 18:10 06:25 06:25 WBC 4.83 (3.98-10.04) K/mm3 RBC 5.11 (3.98-5.22) M/mm3 Hgb 14.1 (11.2-15.7) gm/L Hct 44.6 (34.1-44.9) % MCV 87.3 (79.4-94.8) fl MCH 27.6 (25.6-32.2) pg MCHC 31.6 L (32.2-35.5) g/dl RDW Std Deviation 47.5 H (36.4-46.3) fL Plt Count 245 (182-369) K/mm3 MPV 9.8 (9.4-12.3) fl Neut % (Auto) 42.1 (34.0-71.1) % Lymph % (Auto) 36.4 (19.3-51.7) % [place] % (Auto) 13.0 H (4.7-12.5) % Eos % (Auto) 7.9 H (0.7-5.8) Baso % (Auto) 0.6 (0.1-1.2) % Neut # (Auto) 2.03 (1.56-6.13) K/mm3 Lymph # (Auto) 1.76 (1.18-3.74) K/mm3 [place] # (Auto) 0.63 H (0.24-0.36) K/mm3 Eos # (Auto) 0.38 H (0.04-0.36) K/mm3 Baso # (Auto) 0.03 (0.01-0.08) K/mm3 PT (9.5-12.1) SECONDS INR APTT (24-31) SECONDS D-Dimer, Quantitative (0.19-0.50) mg/L Sodium 141 (136-145) mEq/L Potassium 4.6 (3.5-5.1) mEq/L Chloride 106 (98-107) mEq/L Carbon Dioxide 30 (21-32) mEq/L Anion Gap 9.6 (5-15) BUN 13 (7-18) mg/dL Creatinine 0.8 (0.55-1.02) mg/dL Est Cr Clr Drug Dosing 69.36 mL/min Estimated GFR (MDRD) > 60 (>60) mL/min BUN/Creatinine Ratio 16.3 (14-18) Glucose 98 (80-115) mg/dL Calcium 8.7 (8.5-10.1) mg/dL Magnesium 2.0 (1.8-2.4) mg/dl Total Bilirubin (0.2-1.0) mg/dL AST (15-37) U/L ALT (14-59) U/L Alkaline Phosphatase (46-116) U/L CK-MB (CK-2) 0.6 (0-3.6) ng/ml Troponin I 0.076 H* 0.079 H* (0.00-0.056) ng/mL NT-Pro-B Natriuret Pep (0-125) pg/mL Total Protein (6.4-8.2) g/dl Albumin (3.4-5.0) g/dl Globulin gm/dL Albumin/Globulin Ratio (1-2) Triglycerides 55 (<150) mg/dL Cholesterol 160 (<200) mg/dL LDL Cholesterol Direct 100 (<100) mg/dL HDL Cholesterol 50.0 (40-59) mg/dL Free T4 1.01 (0.76-1.46) ng/dL TSH 3rd Generation 5.158 H (0.358-3.74) uIU/mL 05/13/18 Range/Units 12:35 WBC (3.98-10.04) K/mm3 RBC (3.98-5.22) M/mm3 Hgb (11.2-15.7) gm/L Hct (34.1-44.9) % MCV (79.4-94.8) fl MCH (25.6-32.2) pg MCHC (32.2-35.5) g/dl RDW Std Deviation (36.4-46.3) fL Plt Count (182-369) K/mm3 MPV (9.4-12.3) fl Neut % (Auto) (34.0-71.1) % Lymph % (Auto) (19.3-51.7) % [place] % (Auto) (4.7-12.5) % Eos % (Auto) (0.7-5.8) Baso % (Auto) (0.1-1.2) % Neut # (Auto) (1.56-6.13) K/mm3 Lymph # (Auto) (1.18-3.74) K/mm3 [place] # (Auto) (0.24-0.36) K/mm3 Eos # (Auto) (0.04-0.36) K/mm3 Baso # (Auto) (0.01-0.08) K/mm3 PT (9.5-12.1) SECONDS INR APTT (24-31) SECONDS D-Dimer, Quantitative (0.19-0.50) mg/L Sodium (136-145) mEq/L Potassium (3.5-5.1) mEq/L Chloride (98-107) mEq/L Carbon Dioxide (21-32) mEq/L Anion Gap (5-15) BUN (7-18) mg/dL Creatinine (0.55-1.02) mg/dL Est Cr Clr Drug Dosing mL/min Estimated GFR (MDRD) (>60) mL/min BUN/Creatinine Ratio (14-18) Glucose (80-115) mg/dL Calcium (8.5-10.1) mg/dL Magnesium (1.8-2.4) mg/dl Total Bilirubin (0.2-1.0) mg/dL AST (15-37) U/L ALT (14-59) U/L Alkaline Phosphatase (46-116) U/L CK-MB (CK-2) 0.7 (0-3.6) ng/ml Troponin I 0.086 H* (0.00-0.056) ng/mL NT-Pro-B Natriuret Pep (0-125) pg/mL Total Protein (6.4-8.2) g/dl Albumin (3.4-5.0) g/dl Globulin gm/dL Albumin/Globulin Ratio (1-2) Triglycerides (<150) mg/dL Cholesterol (<200) mg/dL LDL Cholesterol Direct (<100) mg/dL HDL Cholesterol (40-59) mg/dL Free T4 (0.76-1.46) ng/dL TSH 3rd Generation (0.358-3.74) uIU/mL Med Orders - Current: Current Medications Acetaminophen (Tylenol) 650 mg PO Q4H PRN PRN Reason: Pain (Mild 1-3)/fever Hydrocodone Bitart/Acetaminophen (Logan 325-5 Mg) 1 tab PO Q4H PRN PRN Reason: Pain (moderate 4-6) Albuterol/Ipratropium (Duoneb 3.0-0.5 Mg/3 Ml) 3 ml NEB Q4H PRN PRN Reason: Shortness Of Breath/wheezing Alprazolam (Xanax) 0.25 - 0.5 mg PO Q8H PRN PRN Reason: Anxiety Last Admin: 05/12/18 23:30 Dose: 0.5 mg Bisacodyl (Dulcolax) 5 mg PO DAILY PRN PRN Reason: Constipation Calcium Carbonate (Calcium Carbonate/Vitamin D 600 Mg-200 Unit) 1 tab PO TIDMEALS [facility] Last Admin: 05/13/18 11:14 Dose: 1 tab Cyclobenzaprine HCl (Flexeril) 10 mg PO TID PRN PRN Reason: Spasms Docusate Sodium (Colace) 100 mg PO BID [facility] Last Admin: 05/13/18 09:16 Dose: 100 mg Enoxaparin Sodium (Lovenox) 40 mg SUBCUT Q24H [facility] Last Admin: 05/13/18 09:17 Dose: 40 mg Flunisolide (Nasalide Nasal [place]) 0 ml KATELIN Q12H PRN PRN Reason: NOSE Hydralazine HCl (Apresoline) 20 mg IVPUSH Q4H PRN PRN Reason: Hypertension Hydromorphone HCl (Dilaudid) 0.25 mg IVPUSH Q2H PRN PRN Reason: Pain (severe 7-10) Promethazine HCl 12.5 mg/ (Sodium Chloride) 50.5 mls @ 100 mls/hr IV Q6H PRN PRN Reason: Nausea/Vomiting Levothyroxine Sodium (Levothyroxine) 150 mcg PO ACBRK [facility] Last Admin: 05/13/18 06:47 Dose: 150 mcg Loratadine (Claritin) 10 mg PO DAILY [facility] Last Admin: 05/13/18 09:17 Dose: 10 mg Lorazepam (Ativan) 2 mg IVPUSH Q4H PRN PRN Reason: Seizures Magnesium Hydroxide (Milk Of Magnesia) 30 ml PO BID PRN PRN Reason: Constipation Magnesium Sulfate (Pharmacy To Dose - Magnesium Replacement) 1 dose .XX ASDIRECTED [facility] Metoprolol Tartrate (Lopressor) 5 mg IVPUSH Q4H PRN PRN Reason: Tachycardia Mometasone Furoate/Formoterol Fumar (Dulera 200-5 Mcg) 1 puff IH BIDRT [facility] Last Admin: 05/13/18 10:29 Dose: Not Given Montelukast Sodium (Singulair) 10 mg PO DAILY PRN PRN Reason: Allergies Ondansetron HCl (Zofran) 4 mg IV Q6H PRN PRN Reason: Nausea/Vomiting Pantoprazole Sodium (Protonix) 40 mg PO DAILY PRN PRN Reason: stomach Polyethylene Glycol (Miralax) 17 gm PO DAILY PRN PRN Reason: Constipation Potassium Chloride (Pharmacy To Dose - Potassium Replacement) 1 dose .XX ASDIRECTED [facility] Senna (Senna) 8.6 mg PO BID PRN PRN Reason: Constipation Senna/Docusate Sodium (Senna Plus) 1 tab PO BID PRN PRN Reason: Constipation Sodium Chloride (Saline Flush) 10 ml FLUSH ONETIME PRN PRN Reason: IV FLUSH Last Admin: 05/12/18 16:58 Dose: 10 ml Temazepam (Restoril) 7.5 mg PO BEDTIME PRN PRN Reason: Sleep Vitamin B Complex/Vitamin C (Super B With Vitamin C) 1 cap PO DAILY [facility] Last Admin: 05/13/18 09:16 Dose: 1 cap Discontinued Medications Aspirin (Aspirin) 324 mg PO ONETIME ONE Stop: 05/12/18 17:54 Last Admin: 05/12/18 18:16 Dose: 324 mg Sodium Chloride (Normal Saline) 100 mls @ 65 mls/hr IV ASDIRECTED [facility] Last Admin: 07/12/18 16:58 Dose: 65 mls/hr Iopamidol (Isovue-370 (76%)) 100 ml IVPUSH ONETIME ONE Stop: 05/12/18 16:38 Last Admin: 05/12/18 16:58 Dose: 100 ml Iopamidol (Isovue-370 (76%)) 50 ml IVPUSH ONETIME ONE Stop: 05/12/18 16:38 Last Admin: 05/12/18 16:58 Dose: 50 ml Lorazepam (Ativan) 0.5 mg IVPUSH ONETIME ONE Stop: 05/12/18 19:25 Last Admin: 05/12/18 22:51 Dose: Not Given Potassium Chloride (Klor-Con M20) 40 meq PO Q4H [facility] Stop: 05/13/18 03:31 Last Admin: 05/13/18 04:44 Dose: 40 meq Valacyclovir HCl (Valtrex) 1,000 mg PO BID PRN PRN Reason: cold sores - Exam Quality Assessment: Denies: Supplemental Oxygen General: Reports: Alert, Oriented, Cooperative, No Acute Distress, Other ( Burping x 2 during exam ) HEENT: Reports: Pupils Equal, Pupils Reactive, EOMI Neck: Reports: Supple, Trachea Midline. Denies: Lymphadenopathy Lungs: Reports: Clear to Auscultation, Normal Respiratory Effort Cardiovascular: Reports: Regular Rate, Regular Rhythm, No Murmurs GI/Abdominal Exam: Normal Bowel Sounds, Soft, Non-Tender, No Distention (Female) Exam: Deferred Rectal (Female) Exam: Deferred Back Exam: Reports: Normal Inspection, Full Range of Motion Extremities: Normal Inspection, Normal Range of Motion, No Pedal Edema, Other ( Left knee mildly swollen and warm to touch, full ROM intact) Skin: Reports: Warm, Dry, Intact, Other (Left knee incision present with warmth to touch ) Wound/Incisions: Reports: No Drainage. Denies: Erythema Neurological: Reports: No New Focal Deficit, Strength Equal Bilateral, Cranial Nerves Intact (grossly ) Psy/Mental Status: Reports: Alert, Normal Affect, Normal Mood <Mariusz Jacome T - Last Filed: 05/16/18 00:43> Discharge Summary - Patient Summary/Data Consults: Consultations 05/12/18 23:04 Consult to Case Management [CONS] Routine Consult to Corporate Planning Manager [CONS] Routine Consult to Spiritual Care [CONS] Routine 05/12/18 23:13 Consult to Pulmonary Rehabilitation [CONS] Routine 05/13/18 12:10 Consult to Physician [CONS] Routine - Discharge Summary/Plan Comment Discharge Summary/Plan Comment: The patient was seen and examined at bedside in concert with the PA student. The discharge assessment and plans were discussed and agreed upon with me. - Patient Data Vitals - Most Recent: Last Vital Signs Temp 37.2 C 05/13/18 13:06 Pulse 73 05/13/18 13:06 Resp 16 05/13/18 13:06 BP 137/89 05/13/18 13:06 Pulse Ox 92 L 05/13/18 13:06 Med Orders - Current: Current Medications Discontinued Medications Acetaminophen (Tylenol) 650 mg PO Q4H PRN PRN Reason: Pain (Mild 1-3)/fever Hydrocodone Bitart/Acetaminophen ([place] 325-5 Mg) 1 tab PO Q4H PRN PRN Reason: Pain (moderate 4-6) Albuterol/Ipratropium (Duoneb 3.0-0.5 Mg/3 Ml) 3 ml NEB Q4H PRN PRN Reason: Shortness Of Breath/wheezing Alprazolam (Xanax) 0.25 - 0.5 mg PO Q8H PRN PRN Reason: Anxiety Last Admin: 05/12/18 23:30 Dose: 0.5 mg Aspirin (Aspirin) 324 mg PO ONETIME ONE Stop: 05/12/18 17:54 Last Admin: 05/12/18 18:16 Dose: 324 mg Bisacodyl (Dulcolax) 5 mg PO DAILY PRN PRN Reason: Constipation Calcium Carbonate (Calcium Carbonate/Vitamin D 600 Mg-200 Unit) 1 tab PO TIDMEALS [facility] Last Admin: 05/13/18 11:14 Dose: 1 tab Cyclobenzaprine HCl (Flexeril) 10 mg PO TID PRN PRN Reason: Spasms Docusate Sodium (Colace) 100 mg PO BID [facility] Last Admin: 05/13/18 09:16 Dose: 100 mg Enoxaparin Sodium (Lovenox) 40 mg SUBCUT Q24H [facility] Last Admin: 05/13/18 09:17 Dose: 40 mg Flunisolide (Nasalide Nasal [place]) 0 ml KATELIN Q12H PRN PRN Reason: NOSE Hydralazine HCl (Apresoline) 20 mg IVPUSH Q4H PRN PRN Reason: Hypertension Hydromorphone HCl (Dilaudid) 0.25 mg IVPUSH Q2H PRN PRN Reason: Pain (severe 7-10) Sodium Chloride (Normal Saline) 100 mls @ 65 mls/hr IV ASDIRECTED [facility] Last Admin: 05/12/18 16:58 Dose: 65 mls/hr Promethazine HCl 12.5 mg/ (Sodium Chloride) 50.5 mls @ 100 mls/hr IV Q6H PRN PRN Reason: Nausea/Vomiting Iopamidol (Isovue-370 (76%)) 100 ml IVPUSH ONETIME ONE Stop: 05/12/18 16:38 Last Admin: 05/12/18 16:58 Dose: 100 ml Iopamidol (Isovue-370 (76%)) 50 ml IVPUSH ONETIME ONE Stop: 05/12/18 16:38 Last Admin: 05/12/18 16:58 Dose: 50 ml Levothyroxine Sodium (Levothyroxine) 150 mcg PO ACBRK [facility] Last Admin: 05/13/18 06:47 Dose: 150 mcg Loratadine (Claritin) 10 mg PO DAILY [facility] Last Admin: 05/13/18 09:17 Dose: 10 mg Lorazepam (Ativan) 0.5 mg IVPUSH ONETIME ONE Stop: 05/12/18 19:25 Last Admin: 05/12/18 22:51 Dose: Not Given Lorazepam (Ativan) 2 mg IVPUSH Q4H PRN PRN Reason: Seizures Magnesium Hydroxide (Milk Of Magnesia) 30 ml PO BID PRN PRN Reason: Constipation Magnesium Sulfate (Pharmacy To Dose - Magnesium Replacement) 1 dose .XX ASDIRECTED [facility] Metoprolol Tartrate (Lopressor) 5 mg IVPUSH Q4H PRN PRN Reason: Tachycardia Mometasone Furoate/Formoterol Fumar (Dulera 200-5 Mcg) 1 puff IH BIDRT [facility] Last Admin: 05/13/18 10:29 Dose: Not Given Montelukast Sodium (Singulair) 10 mg PO DAILY PRN PRN Reason: Allergies Ondansetron HCl (Zofran) 4 mg IV Q6H PRN PRN Reason: Nausea/Vomiting Pantoprazole Sodium (Protonix) 40 mg PO DAILY PRN PRN Reason: stomach Polyethylene Glycol (Miralax) 17 gm PO DAILY PRN PRN Reason: Constipation Potassium Chloride (Pharmacy To Dose - Potassium Replacement) 1 dose .XX ASDIRECTED [facility] Potassium Chloride (Klor-Con M20) 40 meq PO Q4H [facility] Stop: 05/13/18 03:31 Last Admin: 05/13/18 04:44 Dose: 40 meq Senna (Senna) 8.6 mg PO BID PRN PRN Reason: Constipation Senna/Docusate Sodium (Senna Plus) 1 tab PO BID PRN PRN Reason: Constipation Sodium Chloride (Saline Flush) 10 ml FLUSH ONETIME PRN PRN Reason: IV FLUSH Last Admin: 05/12/18 16:58 Dose: 10 ml Temazepam (Restoril) 7.5 mg PO BEDTIME PRN PRN Reason: Sleep Valacyclovir HCl (Valtrex) 1,000 mg PO BID PRN PRN Reason: cold sores Vitamin B Complex/Vitamin C (Super B With Vitamin C) 1 cap PO DAILY [facility] Last Admin: 05/13/18 09:16 Dose: 1 cap
== END 2018-05-13 15:20 | disposition home or self-care (01) ==
LOC: JD.ED 14:44 → JD.MS 20:04
PROVIDERS: ADMIT Internal Medicine; ATTEND Internal Medicine
DX: M79.89 Other specified soft tissue disorders (principal); R07.2 Precordial pain; R79.89 Other specified abnormal findings of blood chemistry; J45.909 Unspecified asthma, uncomplicated; F41.9 Anxiety disorder, unspecified; K21.9 Gastro-esophageal reflux disease without esophagitis; E03.9 Hypothyroidism, unspecified; E66.9 Obesity, unspecified; Z68.34 Body mass index [BMI] 34.0-34.9, adult; Z79.899 Other long term (current) drug therapy; Z87.891 Personal history of nicotine dependence
CPT/HCPCS: 36415; 71045; 71045-26; 71275; 71275-26; 78452; 78452-26; 80048; 80053; 80061; 82553; 83735; 83880; 84439; 84443; 84484; 85025; 85379; 85610; 85730; 93005; 93010; 93017; 93971-26-LT; 93971-LT; 96372; 99284; 99285-25; A9270; A9270-GY; A9500; G0378; J1650; J7030; J7050; Q9967

== ENCOUNTER 2018-11-16 14:35 | Emergency (ER) | payer OTHER, MEDICARE ==
[2018-11-16] MEDS ORDERED: Sodium Chloride 0.9% 10 ML Syringe FLUSH PRN ×2 (14:48→14:53)
[2018-11-16] MEDS ORDERED: Albuterol/Ipratropium 3.0-0.5 MG/3 ML Neb Soln NEB ONE (14:49)
[2018-11-16] MEDS ORDERED: Iopamidol 755 Mg/ML 100 ML Bottle IVPUSH ONE (14:53)
[2018-11-16] MEDS ORDERED: Sodium Chloride 0.9% 100 ML IV SCH (15:00)
[2018-11-16] MEDS ORDERED: Ketorolac 30 MG/ML SDV IVPUSH ONE (15:07)
[2018-11-16] MEDS ORDERED: Sodium Chloride 0.9% 1,000 ML ONE (15:10)
[2018-11-16] MEDS ORDERED: Sodium Chloride 0.9% 1,000 ML IV SCH (15:15)
--- NOTE | 2018-11-16 15:53 | CT ---
CT chest Technique: Multiple axial sections through the chest were obtained. Intravenous contrast was utilized. Comparison: Prior chest CT performed as an angiogram protocol dated 05/12/18. Findings: Thoracic aorta shows mild atherosclerotic calcification but is otherwise within normal limits. Small mediastinal lymph nodes are seen which are felt to be within normal limits. No axillary adenopathy is seen. No pericardial fluid is seen. Small portion of the visualized upper abdominal structures are within normal. Surgical clips are seen from previous cholecystectomy. Lungs are clear. No pulmonary contusion is seen. No pneumothorax is identified. Bone window settings were reviewed which shows a nondisplaced fracture within the right lateral sixth and seventh ribs, these rib fractures are best seen on the sagittal images. Other old rib fractures are seen which appear healed. Compression deformities are seen within the spine causing kyphosis which is a stable finding from prior CT exam. No acute compression deformities are seen. Reconstructed sagittal images of the spine appear within normal limits. Impression: 1. 2 nondisplaced rib fractures within the lateral right sixth and seventh ribs. 2. Other old appearing healed rib fractures are seen on both sides. 3. Stable compression deformities within the spine causing kyphosis. 4. Other incidental findings. Diagnostic code #3
--- NOTE | 2018-11-16 17:09 | EDM.PDOC ---
ED HPI GENERAL MEDICAL PROBLEM - General Chief Complaint: Trauma Stated Complaint: CRUSHED BY A HORSE Time Seen by Provider: 11/16/18 14:43 Source of Information: Reports: Patient History Limitations: Reports: No Limitations - History of Present Illness INITIAL COMMENTS - FREE TEXT/NARRATIVE: The patient presents with chest pain. She said on Wednesday she was working with her horse and the horse tried to sneak out of the stable and crushed her chest in the frame of the stable gate. She says she could hear and feel some ribs cracking. She has had pain but worse today. She has wheezing but she has asthma. She has some shortness of breath. She denies fever or chills. She has no cough. Onset: Sudden Duration: Day(s): (4) Location: Reports: Chest Quality: Reports: Sharp Severity: Moderate Improves with: Reports: Immobilization Worsens with: Reports: Breathing, Movement Context: Reports: Trauma (Crushed her chest by a horse) Associated Symptoms: Reports: Chest Pain Thoracic Pain Score (Numeric/FACES): 7 - Related Data Allergies Allergy/AdvReac Type Severity Reaction Status Date / Time metronidazole [From Flagyl] AdvReac Nausea and Verified 11/16/18 14:48 Vomiting morphine AdvReac Nausea and Verified 11/16/18 14:48 Vomiting Home Meds: Home Meds ALPRAZolam [Xanax] 0.5 - 1 tab PO Q8H PRN 02/13/18 [History] Budesonide/Formoterol Fumarate [Symbicort 160-4.5 Mcg Inhaler] 1 puff INH BID [History] Ca Carbonate/Vitamin D3/Vit K [Calcium + D Soft Chewable Tab] 1 tab PO TID 02/13 [History] Cetirizine [ZyrTEC] 10 mg PO DAILY 02/13/18 [History] Lansoprazole [Prevacid] 15 mg PO DAILY PRN 02/13/18 [History] Levothyroxine 150 mcg PO DAILY 02/13/18 [History] Montelukast [Singulair] 10 mg PO DAILY PRN 02/13/18 [History] Triamcinolone Acetonide [Nasacort] 1 spray INH DAILY PRN 02/13/18 [History] Vitamin B Complex 1 cap PO DAILY 02/13/18 [History] valACYclovir HCl [Valacyclovir] 1,000 mg PO BID PRN 02/13/18 [History] Acetaminophen/oxyCODONE [Percocet 325-5 MG] 1 - 2 tab PO Q6H PRN #60 tablet [Rx] Bisacodyl [Dulcolax] 5 mg PO DAILY PRN tablet 02/15/18 [Rx] Cyclobenzaprine [Flexeril] 10 mg PO TID PRN #40 tablet 02/15/18 [Rx] Docusate Sodium [Colace] 100 mg PO BID cap 02/15/18 [Rx] Magnesium Hydroxide [Milk of Magnesia] 30 ml PO BID PRN cup 02/15/18 [Rx] Sennosides [Senna] 8.6 mg PO BID PRN tablet 02/15/18 [Rx] predniSONE [Prednisone] 40 mg PO DAILY #10 tablet 11/16/18 [Rx] Past Medical History HEENT History: Reports: Allergic Rhinitis, Hard of Hearing, Sinusitis, Other ( See Below) Other HEENT History: nasal polyp, hearing loss, hypertorphy of nasal turbinates , tinnitis, wears glasses, has hearing aids Cardiovascular History: Reports: None Respiratory History: Reports: Asthma, SOB, Other (See Below) Other Respiratory History: wheezing Gastrointestinal History: Reports: Diverticulosis Genitourinary History: Reports: Other (See Below) Other Genitourinary History: acute cystitis 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: 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 (See Below) Other BUSINESS WRITER History: herpes simplex, vulvovaginitis Musculoskeletal History: Reports: Other (See Below) Other Musculoskeletal History: left knee pain Neurological History: Reports: None Psychiatric History: Reports: Anxiety, Other (See Below) Other Psychiatric History: fatigue Endocrine/Metabolic History: Reports: Hypothyroidism, Obesity/BMI 30+, Osteoporosis Hematologic History: Reports: None Immunologic History: Reports: None Oncologic (Cancer) History: Reports: None Dermatologic History: Reports: None - Infectious Disease History Infectious Disease History: Reports: Chicken Pox, Herpes, Measles, Mumps - Past Surgical History HEENT Surgical History: Reports: Adenoidectomy, Naso-Sinus Surgery, Tonsillectomy Cardiovascular Surgical History: Reports: None Respiratory Surgical History: Reports: None GI Surgical History: Reports: Appendectomy, Cholecystectomy, Colonoscopy Female Surgical History: Reports: Hysterectomy Endocrine Surgical History: Reports: None Neurological Surgical History: Reports: None Musculoskeletal Surgical History: Reports: Knee Replacement, Other (See Below) Other Musculoskeletal Surgeries/Procedures:: bilateral bunionectomy Oncologic Surgical History: Reports: None Dermatological Surgical History: Reports: None Social & Family History - Family History Family Medical History: Noncontributory - Tobacco Use Smoking Status *Q: Never Smoker Second Hand Smoke Exposure: No - Caffeine Use Caffeine Use: Reports: Coffee Other Caffeine Use: Decaf Caffeine Use Comment: small amounts of soda - Recreational Drug Use Recreational Drug Use: No Review of Systems - Review of Systems Review Of Systems: See Below Constitutional: Reports: No Symptoms Eyes: Reports: No Symptoms Ears: Reports: No Symptoms Nose: Reports: No Symptoms Mouth/Throat: Reports: No Symptoms Respiratory: Reports: No Symptoms Cardiovascular: Reports: Chest Pain GI/Abdominal: Reports: No Symptoms Genitourinary: Reports: No Symptoms ED EXAM, GENERAL - Physical Exam Exam: See Below Exam Limited By: No Limitations General Appearance: Alert, No Apparent Distress Ears: Normal External Exam Nose: Normal Inspection Head: Atraumatic, Normocephalic Neck: Normal Inspection Respiratory/Chest: No Respiratory Distress, Wheezing, Other (Pain upon palpation to the right chest) Cardiovascular: Regular Rate, Rhythm, No Edema, No Murmur GI/Abdominal: Soft, Non-Tender, No Organomegaly, No Mass Back Exam: Normal Inspection Extremities: Normal Inspection Neurological: Alert, Oriented, No Motor/Sensory Deficits Course - Vital Signs Last Recorded V/S: Last Vital Signs Temp 98.3 F 11/16/18 14:40 Pulse 79 11/16/18 14:40 Resp 18 11/16/18 14:40 BP 143/99 H 11/16/18 14:40 Pulse Ox 94 L 11/16/18 15:25 - Orders/Labs/Meds Orders: Active Orders 24 hr Category Date Time Status Peripheral IV Care [RC] . DIRECTED Care 11/16/18 14:48 Active RT Aerosol Therapy [RC] ASDIRECTED Care 11/16/18 14:49 Active Sodium Chloride 0.9% [Normal Saline] 1,000 ml Med 11/16/18 15:15 Active IV ASDIRECTED Sodium Chloride 0.9% [Normal Saline] 100 ml Med 11/16/18 15:00 Active IV ASDIRECTED Sodium Chloride 0.9% [Saline Flush] Med 11/16/18 14:48 Active 10 ml FLUSH ASDIRECTED PRN Sodium Chloride 0.9% [Saline Flush] Med 11/16/18 14:53 Active 10 ml FLUSH ONETIME PRN Peripheral IV Insertion Adult [OM.PC] Routine Oth 11/16/18 14:48 Ordered Medication Orders Sodium Chloride (Normal Saline) 100 mls @ 75 mls/hr IV ASDIRECTED SPENCER Last Admin: 11/16/18 15:18 Dose: 75 mls/hr Sodium Chloride (Normal Saline) 1,000 mls @ 75 mls/hr IV ASDIRECTED SPENCER Last Admin: 11/16/18 15:30 Dose: 75 mls/hr Sodium Chloride (Saline Flush) 10 ml FLUSH ASDIRECTED PRN PRN Reason: Keep Vein Open Last Admin: 11/16/18 15:30 Dose: 10 ml Sodium Chloride (Saline Flush) 10 ml FLUSH ONETIME PRN PRN Reason: IV FLUSH Last Admin: 11/16/18 15:18 Dose: 10 ml Labs: Laboratory Tests 11/16/18 11/16/18 Range/Units 15:07 15:07 WBC 6.45 (3.98-10.04) K/mm3 RBC 5.12 (3.98-5.22) M/mm3 Hgb 14.5 (11.2-15.7) gm/L Hct 44.9 (34.1-44.9) % MCV 87.7 (79.4-94.8) fl MCH 28.3 (25.6-32.2) pg MCHC 32.3 (32.2-35.5) g/dl RDW Std Deviation 46.0 (36.4-46.3) fL Plt Count 257 (182-369) K/mm3 MPV 9.8 (9.4-12.3) fl Neut % (Auto) 55.1 (34.0-71.1) % Lymph % (Auto) 29.3 (19.3-51.7) % [place] % (Auto) 9.5 (4.7-12.5) % Eos % (Auto) 5.4 (0.7-5.8) Baso % (Auto) 0.5 (0.1-1.2) % Neut # (Auto) 3.56 (1.56-6.13) K/mm3 Lymph # (Auto) 1.89 (1.18-3.74) K/mm3 [place] # (Auto) 0.61 H (0.24-0.36) K/mm3 Eos # (Auto) 0.35 (0.04-0.36) K/mm3 Baso # (Auto) 0.03 (0.01-0.08) K/mm3 Sodium 140 (136-145) mEq/L Potassium 4.0 (3.5-5.1) mEq/L Chloride 104 (98-107) mEq/L Carbon Dioxide 28 (21-32) mEq/L Anion Gap 12.0 (5-15) BUN 19 H (7-18) mg/dL Creatinine 0.9 (0.55-1.02) mg/dL Est Cr Clr Drug Dosing 61.65 mL/min Estimated GFR (MDRD) > 60 (>60) mL/min BUN/Creatinine Ratio 21.1 H (14-18) Glucose 134 H (80-115) mg/dL Calcium 9.0 (8.5-10.1) mg/dL Total Bilirubin 0.4 (0.2-1.0) mg/dL AST 22 (15-37) U/L ALT 36 (14-59) U/L Alkaline Phosphatase 68 (46-116) U/L Total Protein 7.2 (6.4-8.2) g/dl Albumin 3.7 (3.4-5.0) g/dl Globulin 3.5 gm/dL Albumin/Globulin Ratio 1.1 (1-2) Meds: Medications Generic Name Dose Route Start Last Admin Trade Name Freq PRN Reason Stop Dose Admin Sodium Chloride 100 mls @ 75 mls/hr 11/16/18 15:00 11/16/18 15:18 Normal Saline IV 75 mls/hr ASDIRECTED SPENCER Administration Sodium Chloride 1,000 mls @ 75 mls/hr 11/16/18 15:15 11/16/18 15:30 Normal Saline IV 75 mls/hr ASDIRECTED SPENCER Administration Sodium Chloride 10 ml 11/16/18 14:48 11/16/18 15:30 Saline Flush FLUSH 10 ml ASDIRECTED PRN Administration Keep Vein Open Sodium Chloride 10 ml 11/16/18 14:53 11/16/18 15:18 Saline Flush FLUSH 10 ml ONETIME PRN Administration IV FLUSH Discontinued Medications Generic Name Dose Route Start Last Admin Trade Name Garcia PRN Reason Stop Dose Admin Albuterol/Ipratropium 3 ml 11/16/18 14:49 11/16/18 15:25 Duoneb 3.0-0.5 Mg/3 Ml NEB 11/16/18 14:50 3 ml ONETIME ONE Administration Sodium Chloride Confirm 11/16/18 15:10 11/16/18 15:16 Normal Saline Administered 11/16/18 15:11 Not Given Dose 1,000 mls @ as directed .ROUTE .STK-MED ONE Iopamidol 100 ml 11/16/18 14:53 11/16/18 15:18 Isovue-370 (76%) IVPUSH 11/16/18 14:54 100 ml ONETIME ONE Administration Ketorolac Tromethamine 30 mg 11/16/18 15:07 11/16/18 15:27 Toradol IVPUSH 11/16/18 15:08 30 mg ONETIME ONE Administration - Re-Assessments/Exams Free Text/Narrative Re-Assessment/Exam: 11/16/18 17:07 I ordered an IV NS, labs, toradol and a CT of her chest. Her CBC looks good. Her glucose is 134. Her CT shows 2 nondisplaced rib fractures within the lateral right sixth and seventh ribs. Other old appearing healed rib fractures are seen on both sides. Stable compression deformities within the spine causing kyphosis. Other incidental findings. I did order a duoneb and she feels better. I ordered an incentive spyrometer and she does not want anything stronger for pain. Departure - Departure Time of Disposition: 17:10 Disposition: Home, Self-Care 01 Condition: Good Clinical Impression: Ribs, multiple fractures Qualifiers: Encounter type: initial encounter Fracture type: closed Laterality: right Qualified Code(s): S22.41XA - Multiple fractures of ribs, right side, initial encounter for closed fracture Crushing injury of chest Qualifiers: Encounter type: initial encounter Qualified Code(s): S28.0XXA - Crushed chest, initial encounter Asthma Qualifiers: Asthma severity: unspecified severity Asthma persistence: unspecified Asthma complication type: unspecified Qualified Code(s): J45.909 - Unspecified asthma, uncomplicated - Discharge Information *PRESCRIPTION DRUG MONITORING PROGRAM REVIEWED*: No *COPY OF PRESCRIPTION DRUG MONITORING REPORT IN PATIENT BIENVENIDO: No Prescriptions: predniSONE [Prednisone] 40 mg PO DAILY #10 tablet Referrals: Bijal Olmos NP [Primary Care Provider] - 1 Week Additional Instructions: Take tylenol or motrin for the pain. Take prednisone daily for 5 days. Please return if you are worse. Use the incentive spyrometer 10 reps every 4 hours while awake for 5 days. - My Orders Last 24 Hours: My Active Orders 11/16/18 14:48 Peripheral IV Care [RC] . DIRECTED Sodium Chloride 0.9% [Saline Flush] 10 ml FLUSH ASDIRECTED PRN Peripheral IV Insertion Adult [OM.PC] Routine 11/16/18 14:49 RT Aerosol Therapy [RC] ASDIRECTED 11/16/18 14:53 Sodium Chloride 0.9% [Saline Flush] 10 ml FLUSH ONETIME PRN 11/16/18 15:00 Sodium Chloride 0.9% [Normal Saline] 100 ml IV ASDIRECTED 11/16/18 15:15 Sodium Chloride 0.9% [Normal Saline] 1,000 ml IV ASDIRECTED - Assessment/Plan Last 24 Hours: My Active Orders 11/16/18 14:48 Peripheral IV Care [RC] . DIRECTED Sodium Chloride 0.9% [Saline Flush] 10 ml FLUSH ASDIRECTED PRN Peripheral IV Insertion Adult [OM.PC] Routine 11/16/18 14:49 RT Aerosol Therapy [RC] ASDIRECTED 11/16/18 14:53 Sodium Chloride 0.9% [Saline Flush] 10 ml FLUSH ONETIME PRN 11/16/18 15:00 Sodium Chloride 0.9% [Normal Saline] 100 ml IV ASDIRECTED 11/16/18 15:15 Sodium Chloride 0.9% [Normal Saline] 1,000 ml IV ASDIRECTED
== END 2018-11-16 17:20 | disposition home or self-care (01) ==
LOC: JD.ED 14:35
DX: S22.41XA Multiple fractures of ribs, right side, initial encounter for closed fracture (principal); J45.909 Unspecified asthma, uncomplicated; E03.9 Hypothyroidism, unspecified; F41.9 Anxiety disorder, unspecified; Z79.2 Long term (current) use of antibiotics; Z79.891 Long term (current) use of opiate analgesic; Z79.899 Other long term (current) drug therapy; Z88.1 Allergy status to other antibiotic agents; Z88.6 Allergy status to analgesic agent; Z90.89 Acquired absence of other organs; Z96.659 Presence of unspecified artificial knee joint; Z90.49 Acquired absence of other specified parts of digestive tract; Z90.710 Acquired absence of both cervix and uterus; Z87.39 Personal history of other diseases of the musculoskeletal system and connective tissue; Z98.890 Other specified postprocedural states; W55.19XA Other contact with horse, initial encounter; Y93.89 Activity, other specified; Y92.89 Other specified places as the place of occurrence of the external cause
CPT/HCPCS: 36415; 71260; 80053; 85025; 94640; 96361; 96374; 99285; J1885; J7030; J7040; Q9967; J7620-GY

== ENCOUNTER 2019-10-09 09:04 | Emergency (ER) | payer OTHER, MEDICARE ==
--- NOTE | 2019-10-09 09:51 | EDM.PDOC ---
<Marilyn Gleason - Last Filed: 10/09/19 09:46> ED HPI GENERAL MEDICAL PROBLEM - General Chief Complaint: Cardiovascular Problem Stated Complaint: NAUSEA/HEART ISSUES Time Seen by Provider: 10/09/19 09:18 Source of Information: Reports: Patient History Limitations: Reports: No Limitations - History of Present Illness INITIAL COMMENTS - FREE TEXT/NARRATIVE: 69 year old female who presents to the ED with complaints of feeling flushed and nauseated. She was sitting at work about 40 minutes ago, answering phone calls when she had a sudden onset of feeling flushed and nauseated. Denies syncope, but states that she just did not feel well. Denies history of diabetes , high blood pressure or cardiac issues. Does have an abdominal aortic aneurism. She states that she did eat breakfast this morning. There were nurses and an EMT present and they put her on a watch that records EKGs and the EMT told her that she had PVCs and was in atrial fibrillation. The patient also reports that she just got new last evening around 2300 that her sister in law and that she did not sleep well last night after hearing this. - Related Data Allergies Allergy/AdvReac Type Severity Reaction Status Date / Time metronidazole [From Flagyl] AdvReac Nausea and Verified 10/09/19 09:17 Vomiting morphine AdvReac Nausea and Verified 10/09/19 09:17 Vomiting Home Meds: Home Meds ALPRAZolam [Xanax] 0.5 - 1 tab PO Q8H PRN 02/13/18 [History] Budesonide/Formoterol Fumarate [Symbicort 160-4.5 Mcg Inhaler] 1 puff INH BID PRN 02/13/18 [History] Calcium Carb/Vitamin D3/Vit K1 [Calcium + D Soft Chewable Tab] 1 tab PO TID [History] Cetirizine [ZyrTEC] 10 mg PO DAILY 02/13/18 [History] Levothyroxine 150 mcg PO DAILY 02/13/18 [History] Montelukast [Singulair] 10 mg PO DAILY PRN 02/13/18 [History] Vitamin B Complex 1 cap PO DAILY 02/13/18 [History] Aspirin [Halfprin] 81 mg PO DAILY 10/09/19 [History] Past Medical History HEENT History: Reports: Allergic Rhinitis, Hard of Hearing, Sinusitis, Other ( See Below) Other HEENT History: nasal polyp, hearing loss, hypertorphy of nasal turbinates , tinnitis, wears glasses, has hearing aids Cardiovascular History: Reports: None Respiratory History: Reports: Asthma, SOB, Other (See Below) Other Respiratory History: wheezing Gastrointestinal History: Reports: Diverticulosis Genitourinary History: Reports: Other (See Below) Other Genitourinary History: acute cystitis 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 (See Below) 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 History: herpes simplex, vulvovaginitis Musculoskeletal History: Reports: Other (See Below) Other Musculoskeletal History: left knee pain Neurological History: Reports: None Psychiatric History: Reports: Anxiety, Other (See Below) Other Psychiatric History: fatigue Endocrine/Metabolic History: Reports: Hypothyroidism, Obesity/BMI 30+, Osteoporosis Hematologic History: Reports: None Immunologic History: Reports: None Oncologic (Cancer) History: Reports: None Dermatologic History: Reports: None - Infectious Disease History Infectious Disease History: Reports: Chicken Pox, Herpes, Measles, Mumps - Past Surgical History HEENT Surgical History: Reports: Adenoidectomy, Naso-Sinus Surgery, Tonsillectomy Cardiovascular Surgical History: Reports: None Respiratory Surgical History: Reports: None GI Surgical History: Reports: Appendectomy, Cholecystectomy, Colonoscopy Female Surgical History: Reports: Hysterectomy Endocrine Surgical History: Reports: None Neurological Surgical History: Reports: None Musculoskeletal Surgical History: Reports: Knee Replacement, Other (See Below) Other Musculoskeletal Surgeries/Procedures:: bilateral bunionectomy Oncologic Surgical History: Reports: None Dermatological Surgical History: Reports: None Social & Family History - Family History Family Medical History: Noncontributory - Tobacco Use Smoking Status *Q: Never Smoker - Caffeine Use Caffeine Use: Reports: Coffee Other Caffeine Use: Decaf Caffeine Use Comment: small amounts of soda - Recreational Drug Use Recreational Drug Use: No ED ROS GENERAL - Review of Systems Review Of Systems: See Below Constitutional: Reports: No Symptoms HEENT: Reports: No Symptoms Respiratory: Reports: No Symptoms. Denies: Shortness of Breath, Cough Cardiovascular: Reports: No Symptoms. Denies: Chest Pain, Blood Pressure Problem, Edema, Lightheadedness, Palpitations, Syncope Endocrine: Reports: No Symptoms GI/Abdominal: Reports: Nausea. Denies: Abdominal Pain, Vomiting : Reports: No Symptoms Musculoskeletal: Reports: No Symptoms Skin: Reports: No Symptoms Neurological: Reports: No Symptoms. Denies: Headache Psychiatric: Reports: No Symptoms Hematologic/Lymphatic: Reports: No Symptoms Immunologic: Reports: No Symptoms ED EXAM, GENERAL - Physical Exam Exam: See Below Exam Limited By: No Limitations General Appearance: Alert, WD/WN, No Apparent Distress Ears: Normal External Exam, Hearing Grossly Normal Nose: Normal Inspection Throat/Mouth: Normal Inspection, Normal Lips, Normal Voice, No Airway Compromise Head: Atraumatic, Normocephalic Neck: Normal Inspection, Supple Respiratory/Chest: No Respiratory Distress, Lungs Clear, Normal Breath Sounds, Chest Non-Tender Cardiovascular: Normal Peripheral Pulses, Regular Rate, Rhythm, No Edema, No Murmur GI/Abdominal: Normal Bowel Sounds, Soft, Non-Tender (Female) Exam: Deferred Rectal (Female) Exam: Deferred Back Exam: Normal Inspection, Full Range of Motion Extremities: Normal Inspection, Normal Range of Motion, No Pedal Edema, Normal Capillary Refill Neurological: Alert, Oriented, Normal Cognition, No Motor/Sensory Deficits Psychiatric: Normal Affect, Normal Mood. No: Anxious Skin Exam: Warm, Dry, Intact, Normal Color, No Rash. No: Diaphoretic Lymphatic: No Adenopathy Course - Vital Signs Last Recorded V/S: Last Vital Signs Temp 98.7 F 10/09/19 09:14 Pulse 76 10/09/19 09:14 Resp 20 10/09/19 09:14 BP 129/87 10/09/19 09:14 Pulse Ox 95 10/09/19 09:14 - Orders/Labs/Meds Orders: Active Orders 24 hr Category Date Time Status EKG Documentation Completion [RC] ASDIRECTED Care 10/09/19 09:26 Active EKG 12 Lead [EK] Stat Ther 10/09/19 09:26 Ordered Labs: Laboratory Tests 10/09/19 10/09/19 Range/Units 09:59 09:59 WBC 4.37 (3.98-10.04) K/mm3 RBC 5.33 H (3.98-5.22) M/mm3 Hgb 15.0 (11.2-15.7) gm/dl Hct 46.8 H (34.1-44.9) % MCV 87.8 (79.4-94.8) fl MCH 28.1 (25.6-32.2) pg MCHC 32.1 L (32.2-35.5) g/dl RDW Std Deviation 47.1 H (36.4-46.3) fL Plt Count 267 (182-369) K/mm3 MPV 9.8 (9.4-12.3) fl Neut % (Auto) 43.4 (34.0-71.1) % Lymph % (Auto) 38.7 (19.3-51.7) % [place] % (Auto) 13.3 H (4.7-12.5) % Eos % (Auto) 4.1 (0.7-5.8) Baso % (Auto) 0.5 (0.1-1.2) % Neut # (Auto) 1.90 (1.56-6.13) K/mm3 Lymph # (Auto) 1.69 (1.18-3.74) K/mm3 [place] # (Auto) 0.58 H (0.24-0.36) K/mm3 Eos # (Auto) 0.18 (0.04-0.36) K/mm3 Baso # (Auto) 0.02 (0.01-0.08) K/mm3 Sodium 142 (136-145) mEq/L Potassium 4.2 (3.5-5.1) mEq/L Chloride 103 (98-107) mEq/L Carbon Dioxide 32 (21-32) mEq/L Anion Gap 11.2 (5-15) BUN 21 H (7-18) mg/dL Creatinine 0.8 (0.55-1.02) mg/dL Est Cr Clr Drug Dosing 68.38 mL/min Estimated GFR (MDRD) > 60 (>60) mL/min BUN/Creatinine Ratio 26.3 H (14-18) Glucose 93 (80-115) mg/dL Calcium 9.1 (8.5-10.1) mg/dL Total Bilirubin 0.5 (0.2-1.0) mg/dL AST 21 (15-37) U/L ALT 36 (14-59) U/L Alkaline Phosphatase 73 (46-116) U/L Troponin I 0.094 H* (0.00-0.056) ng/mL Total Protein 7.4 (6.4-8.2) g/dl Albumin 3.8 (3.4-5.0) g/dl Globulin 3.6 gm/dL Albumin/Globulin Ratio 1.1 (1-2) - Re-Assessments/Exams Free Text/Narrative Re-Assessment/Exam: 10/09/19 09:[address] Aguilar, I have ordered a CBC, CMP, Trop, EKG, and a chest xray on this patient. Departure - Departure Disposition: Home, Self-Care 01 Clinical Impression: Skin flushed, Nausea Referrals: Bijal Olmos KILN FIREMAN [Primary Care Provider] - 1 Week Forms: ED Department Discharge Additional Instructions: Drink plenty of fluids. Take your medication as prescribed. Wear the holter monitor for 48 hours. Keep track of any symptoms and what your are doing when you have those symptoms when wearing the holter monitor. Follow up with your provider within a week. Please return if you are worse. - My Orders Last 24 Hours: My Active Orders 10/09/19 09:26 EKG Documentation Completion [RC] ASDIRECTED EKG 12 Lead [EK] Stat - Assessment/Plan Last 24 Hours: My Active Orders 10/09/19 09:26 EKG Documentation Completion [RC] ASDIRECTED EKG 12 Lead [EK] Stat <Ralph Aguilar - Last Filed: 10/09/19 10:56> Course - Re-Assessments/Exams Free Text/Narrative Re-Assessment/Exam: 10/09/19 10:43 I examined the patient myself and I agree with Jose G's assessment and plan. I ordered an EKG, CXR and labs. Her EKG shows a NSR with no acute changes. Her CXR looks good. Her CBC looks good. Her troponin is elevated at 0.094. I was concerned initially but looking in her old records she was admitted here and she had elevated troponins. She does see cardiology for AAA. She gets assessed every 6 months. She feels good. She had no chest pain. 10/09/19 10:53 I have ordered a holter monitor for the patient. Departure - Departure Time of Disposition: 10:55 Condition: Good
--- NOTE | 2019-10-09 10:33 | CR ---
Chest: Portable view of the chest was obtained. Comparison: No prior chest x-ray is available, prior chest CT of 05/12/18 is available. Findings: Heart size is normal. Upper mediastinum is also within normal limits for portable technique. Lungs are clear with no acute parenchymal change. Bony structures are grossly intact. Impression: 1. Nothing acute is seen on portable chest x-ray. Diagnostic code #1 This report was dictated in [place] Standard Time
== END 2019-10-09 11:00 | disposition home or self-care (01) ==
LOC: JD.ED 09:04
DX: R11.0 Nausea (principal); R23.2 Flushing; J45.909 Unspecified asthma, uncomplicated; E66.9 Obesity, unspecified; E03.9 Hypothyroidism, unspecified; F41.9 Anxiety disorder, unspecified; Z88.8 Allergy status to other drugs, medicaments and biological substances; Z88.5 Allergy status to narcotic agent; Z79.51 Long term (current) use of inhaled steroids; Z79.82 Long term (current) use of aspirin; Z79.890 Hormone replacement therapy; Z68.32 Body mass index [BMI] 32.0-32.9, adult; Z79.899 Other long term (current) drug therapy
CPT/HCPCS: 36415; 71045; 71045-26; 80053; 84484; 85025; 93005; 93010; 93225; 93226; 99283; 99284-25